=== PATIENT | female | born 1945 | race African-American/Black ===

== ENCOUNTER 2017-11-14 10:04 | Inpatient (IN) ==
[2017-11-14 11:01] LABS: Basophils % 0.5 % (0.0-0.8); Eosinophils # 0.1 10*3/uL (0.0-0.87); Eosinophils % 0.7 % (0.00-10.9); Hematocrit 40.3 VOL% (35.7-47.0); Hemoglobin 12.4 GM/DL (12.0-16.0); Immature Granulocytes % 0.1 %; Immature Granulocytes Absolute 0.01 #; Lymphocytes # 2.7 10*3/uL (1.4-4.0); Lymphocytes % 35.9 % (21.3-54.2); Mean Corpuscular HGB Conc 30.8 GM/DL (32-36); Mean Corpuscular Hemoglobin 24 PG (27-34); Mean Corpuscular Volume 78.4 FL (87-102); Mean Platelet Volume 10.2 FL (9.6-12.0); Neutrophils # 3.8 10*3/uL (1.4-7.4); Neutrophils % 49.8 % (38.7-73.9); Platelet Count 257 T/CUMM (130-400); Red Blood Count 5.14 MC/CUMM (3.8-5.5); Red Cell Distribution Width 20.5 % (9.3-17.3); White Blood Count 7.5 T/CUMM (4-12)
[2017-11-14 11:21] LABS: Alanine Aminotransferase 19 U/L (13-56); Albumin 3.2 G/DL (3.4-5.0); Alkaline Phosphatase 121 U/L (45-117); Aspartate Amino Transferase 27 U/L (0-37); Blood Urea Nitrogen 13 MG/DL (7-18); Calcium 8.6 MG/DL (8.5-10.1); Glucose 100 MG/DL (74-106); Osmolality,Calculated 278.4 MOS/KG (273-304); Potassium 2.6 MMOL/L (3.5-5.1); Sodium 140 MMOL/L (136-145); Total Protein 7.6 G/DL (6.4-8.3); Troponin I 0.027 NG/ML (0.00-0.045)
[2017-11-14 12:03] LABS: Barbiturates Screen,Urine Negative (Negative); Benzodiazepines Screen,Urine Negative (Negative); Cannabinoid Screen,Urine Negative (Negative); Opiate Screen,Urine Negative (Negative); Phencyclidine Screen,Urine Negative (Negative)
[2017-11-14 12:18] LABS: Apearance,Urine Slightly Hazy (Clear); Bacteria,Urine Occasional /HPF (Few); Bilirubin,Urine Negative (Negative); Blood, Urine Negative (Negative); Glucose,Urine (UA) Negative (Negative); Hyaline Casts,Urine 3 /LPF (0-3); Ketones,Urine Negative (Negative); Mucus,Urine Occasional /LPF (Occasional); Nitrite,Urine Negative (Negative); Protein,Urine Negative; RBC,Urine <1 /HPF (0-4); Squamous Epithelial Cell,Urine Occasional /HPF (0-10); Transitional Epi Cells,Urine Occasional /HPF (<1); Urine Color Yellow (Yellow); Urine Specific Gravity 1.004 (1.001-1.035); WBC,Urine 2 /HPF (0-6)
[2017-11-14] MEDS ORDERED: ACETAMINOPHEN 325 MG TABLET PO PRN (12:44)
[2017-11-14] MEDS ORDERED: POTASSIUM CHLORIDE 20 MEQ TABLET PO ONE (13:05)
[2017-11-14] MEDS: FUROSEMIDE 40 MG/4 ML VIAL IV SCH (16:45)
[2017-11-14] MEDS: CARVEDILOL 3.125 MG TABLET PO SCH (21:20)
[2017-11-14] MEDS: diphenhydrAMINE CAP 25 MG CAPSULE PO PRN (21:20)
[2017-11-15 02:47] LABS: Basophils % 0.4 % (0.0-0.8); Eosinophils # 0.1 10*3/uL (0.0-0.87); Hematocrit 35.9 VOL% (35.7-47.0); Hemoglobin 11.1 GM/DL (12.0-16.0); Immature Granulocytes % 0.3 %; Immature Granulocytes Absolute 0.02 #; Lymphocytes # 2.4 10*3/uL (1.4-4.0); Lymphocytes % 33.8 % (21.3-54.2); Mean Corpuscular HGB Conc 30.9 GM/DL (32-36); Mean Corpuscular Hemoglobin 24 PG (27-34); Mean Corpuscular Volume 77.2 FL (87-102); Mean Platelet Volume 10.7 FL (9.6-12.0); Monocytes # 0.9 10*3/uL (0.11-0.8); Monocytes % 12.6 % (1.7-12.7); NRBC # 0.02 10*3/uL; Neutrophils # 3.7 10*3/uL (1.4-7.4); Neutrophils % 51.9 % (38.7-73.9); Platelet Count 247 T/CUMM (130-400); Red Blood Count 4.65 MC/CUMM (3.8-5.5); Red Cell Distribution Width 20.3 % (9.3-17.3); White Blood Count 7.1 T/CUMM (4-12)
[2017-11-15 03:27] LABS: Osmolality,Calculated 284.3 MOS/KG (273-304)
[2017-11-15] MEDS ORDERED: POTASSIUM CHLORIDE 20 MEQ TABLET PO ONE (08:03)
[2017-11-15] MEDS ORDERED: APIXABAN 5 MG TABLET PO SCH (09:00)
[2017-11-15] MEDS: PANTOPRAZOLE 40 MG TABLET PO SCH (10:11)
[2017-11-15] MEDS: POTASSIUM CHLORIDE 20 MEQ TABLET PO SCH (10:12)
[2017-11-15] MEDS: FUROSEMIDE 40 MG/4 ML VIAL IV SCH ×2 (10:14→16:52)
[2017-11-15] MEDS ORDERED: ALBUTEROL 2.5 MG/3 ML NEB RESP TX PRN (11:38)
[2017-11-15] MEDS ORDERED: diphenhydrAMINE CAP 25 MG CAPSULE PO PRN (11:38)
[2017-11-15] MEDS ORDERED: LOSARTAN 25 MG TABLET PO SCH (12:00)
[2017-11-15] MEDS ORDERED: DILTIAZEM CD 240 MG CAPSULE PO SCH (12:00)
[2017-11-15] MEDS ORDERED: CARVEDILOL 25 MG TABLET PO SCH (19:00)
[2017-11-15] MEDS: diphenhydrAMINE CAP 25 MG CAPSULE PO PRN (21:20)
[2017-11-15] MEDS: CARVEDILOL 3.125 MG TABLET PO SCH (21:20)
[2017-11-15] MEDS: ATORVASTATIN 20 MG TABLET PO SCH (21:20)
[2017-11-15] MEDS: APIXABAN 5 MG TABLET PO SCH (21:20)
[2017-11-15] MEDS: ZALEPLON 5 MG CAPSULE PO PRN (21:20)
[2017-11-16 05:03] LABS: Basophils % 0.3 % (0.0-0.8); Eosinophils # 0.1 10*3/uL (0.0-0.87); Hemoglobin 11.3 GM/DL (12.0-16.0); Immature Granulocytes % 0.3 %; Immature Granulocytes Absolute 0.02 #; Lymphocytes # 2.5 10*3/uL (1.4-4.0); Mean Corpuscular HGB Conc 31.4 GM/DL (32-36); Mean Corpuscular Hemoglobin 24 PG (27-34); Mean Corpuscular Volume 75.8 FL (87-102); Mean Platelet Volume 10.5 FL (9.6-12.0); Monocytes % 14.6 % (1.7-12.7); Neutrophils # 2.9 10*3/uL (1.4-7.4); Neutrophils % 44.8 % (38.7-73.9); Platelet Count 257 T/CUMM (130-400); Red Blood Count 4.75 MC/CUMM (3.8-5.5); Red Cell Distribution Width 20.3 % (9.3-17.3); White Blood Count 6.6 T/CUMM (4-12)
[2017-11-16 05:17] LABS: Calcium 7.9 MG/DL (8.5-10.1); Osmolality,Calculated 281.1 MOS/KG (273-304); Potassium 3.1 MMOL/L (3.5-5.1)
[2017-11-16] MEDS ORDERED: DILTIAZEM 25 MG/5 ML VIAL IV ONE (09:38)
[2017-11-16] MEDS ORDERED: DILTIAZEM 50 MG/10 ML VIAL IV ONE (09:52)
[2017-11-16] MEDS ORDERED: POTASSIUM CHLORIDE 20 MEQ/15 ML UDCUP PO ONE (09:55)
[2017-11-16] MEDS: POTASSIUM CHLORIDE 20 MEQ TABLET PO SCH ×2 (09:56→22:03)
[2017-11-16] MEDS: PANTOPRAZOLE 40 MG TABLET PO SCH (09:58)
[2017-11-16] MEDS: APIXABAN 5 MG TABLET PO SCH ×2 (09:58→22:02)
[2017-11-16] MEDS: ASPIRIN EC 81 MG TABLET PO SCH (09:58)
[2017-11-16] MEDS ORDERED: METOPROLOL TARTRATE 25 MG TABLET PO SCH (10:00)
[2017-11-16] MEDS: FUROSEMIDE 40 MG/4 ML VIAL IV SCH ×2 (10:02→16:48)
[2017-11-16 10:36] LABS: Thyroid Stimulating Hormone 1.7 uIU/ml (0.358-3.74)
[2017-11-16] MEDS: BISOPROLOL 5 MG TABLET PO SCH ×3 (10:46→22:03)
[2017-11-16 11:05] LABS: Calcium 8.2 MG/DL (8.5-10.1); Osmolality,Calculated 279.4 MOS/KG (273-304); Potassium 2.9 MMOL/L (3.5-5.1)
[2017-11-16] MEDS ORDERED: FLUCONAZOLE INJ 400 MG in PREMIX 1 EACH IV SCH (12:30)
[2017-11-16] MEDS: ONDANSETRON 4 MG/2 ML VIAL IV PRN ×2 (18:13→22:03)
[2017-11-16] MEDS: diphenhydrAMINE CAP 25 MG CAPSULE PO PRN (22:02)
[2017-11-16] MEDS: ATORVASTATIN 20 MG TABLET PO SCH (22:02)
[2017-11-16] MEDS: ZALEPLON 5 MG CAPSULE PO PRN (22:02)
[2017-11-16] MEDS: MAGNESIUM OXIDE 400 MG TABLET PO SCH (22:02)
[2017-11-17] MEDS: ONDANSETRON 4 MG/2 ML VIAL IV PRN (02:03)
[2017-11-17] MEDS ORDERED: BISMUTH SUBSALICYLATE 30 ML/524 MG 240 ML/BOTTLE PO PRN (04:10)
[2017-11-17 04:44] LABS: Calcium 9.1 MG/DL (8.5-10.1); Osmolality,Calculated 268.4 MOS/KG (273-304)
[2017-11-17 04:46] LABS: Potassium 6.5 MMOL/L (3.5-5.1)
[2017-11-17] MEDS: BISOPROLOL 5 MG TABLET PO SCH ×4 (04:50→21:30)
[2017-11-17] MEDS ORDERED: NITROGLYCERIN SL 0.4 MG TABLET SL ONE (06:49)
[2017-11-17] MEDS ORDERED: NITROGLYCERIN SL 0.4 MG TABLET SL PRN (06:57)
[2017-11-17 07:18] LABS: Basophils % 0.2 % (0.0-0.8); Hematocrit 45.1 VOL% (35.7-47.0); Immature Granulocytes % 0.8 %; Lymphocytes # 1.5 10*3/uL (1.4-4.0); Lymphocytes % 11.2 % (21.3-54.2); Mean Corpuscular HGB Conc 28.8 GM/DL (32-36); Mean Corpuscular Hemoglobin 24 PG (27-34); Mean Corpuscular Volume 82.4 FL (87-102); Mean Platelet Volume 10.6 FL (9.6-12.0); Monocytes # 1.5 10*3/uL (0.11-0.8); Monocytes % 11.4 % (1.7-12.7); NRBC # 0.05 10*3/uL; Neutrophils # 9.9 10*3/uL (1.4-7.4); Neutrophils % 76.4 % (38.7-73.9); Platelet Count 266 T/CUMM (130-400); Red Blood Count 5.47 MC/CUMM (3.8-5.5); Red Cell Distribution Width 20.6 % (9.3-17.3)
[2017-11-17 07:45] LABS: Albumin 3.3 G/DL (3.4-5.0); Bilirubin,Total 3.8 MG/DL (0.2-1.0); Osmolality,Calculated 270.2 MOS/KG (273-304); Potassium 5.8 MMOL/L (3.5-5.1)
[2017-11-17] MEDS: POTASSIUM CHLORIDE 20 MEQ TABLET PO SCH (08:44)
[2017-11-17] MEDS: ASPIRIN EC 81 MG TABLET PO SCH (09:00)
[2017-11-17] MEDS: MAGNESIUM OXIDE 400 MG TABLET PO SCH ×2 (09:00→21:25)
[2017-11-17] MEDS: PANTOPRAZOLE 40 MG TABLET PO SCH (09:00)
[2017-11-17] MEDS: APIXABAN 5 MG TABLET PO SCH ×2 (09:00→21:25)
[2017-11-17] MEDS: FUROSEMIDE 40 MG/4 ML VIAL IV SCH (09:01)
[2017-11-17] MEDS ORDERED: SODIUM POLYSTYRENE SULFATE 15 GM/60 ML BOTTLE PO STA (13:02)
[2017-11-17] MEDS: ZALEPLON 5 MG CAPSULE PO PRN (21:25)
[2017-11-17] MEDS: diphenhydrAMINE CAP 25 MG CAPSULE PO PRN (21:25)
[2017-11-18 03:54] LABS: Basophils % 0.1 % (0.0-0.8); Hematocrit 39.2 VOL% (35.7-47.0); Hemoglobin 12.3 GM/DL (12.0-16.0); Immature Granulocytes % 1.1 %; Immature Granulocytes Absolute 0.16 #; Lymphocytes % 13.9 % (21.3-54.2); Mean Corpuscular HGB Conc 31.4 GM/DL (32-36); Mean Corpuscular Hemoglobin 24 PG (27-34); Mean Corpuscular Volume 76.3 FL (87-102); Mean Platelet Volume 11.2 FL (9.6-12.0); Monocytes # 1.7 10*3/uL (0.11-0.8); Monocytes % 11.6 % (1.7-12.7); NRBC # 0.12 10*3/uL; Neutrophils # 10.4 10*3/uL (1.4-7.4); Neutrophils % 73.3 % (38.7-73.9); Platelet Count 253 T/CUMM (130-400); Red Blood Count 5.14 MC/CUMM (3.8-5.5); White Blood Count 14.3 T/CUMM (4-12)
[2017-11-18 04:10] LABS: Calcium 8.5 MG/DL (8.5-10.1); Osmolality,Calculated 271.7 MOS/KG (273-304); Potassium 5.1 MMOL/L (3.5-5.1)
[2017-11-18] MEDS: BISOPROLOL 5 MG TABLET PO SCH ×5 (05:08→21:31)
[2017-11-18 06:42] LABS: Albumin 3.2 G/DL (3.4-5.0); Bilirubin,Total 4.1 MG/DL (0.2-1.0); Calcium 8.5 MG/DL (8.5-10.1); Osmolality,Calculated 272.7 MOS/KG (273-304); Total Protein 7.6 G/DL (6.4-8.3)
[2017-11-18] MEDS: PANTOPRAZOLE 40 MG TABLET PO SCH (08:45)
[2017-11-18] MEDS: APIXABAN 5 MG TABLET PO SCH ×2 (08:45→21:31)
[2017-11-18] MEDS: MAGNESIUM OXIDE 400 MG TABLET PO SCH ×2 (08:45→21:31)
[2017-11-18] MEDS: ASPIRIN EC 81 MG TABLET PO SCH (08:45)
[2017-11-18] MEDS ORDERED: FUROSEMIDE 40 MG/4 ML VIAL IV SCH (09:00)
[2017-11-18] MEDS ORDERED: FUROSEMIDE 20 MG TABLET PO ONE (18:00)
[2017-11-18] MEDS ORDERED: CAPTOPRIL 6.25 MG TABLET PO SCH (18:01)
[2017-11-19 04:38] LABS: Basophils % 0.2 % (0.0-0.8); Eosinophils % 0.2 % (0.00-10.9); Hematocrit 36.1 VOL% (35.7-47.0); Hemoglobin 11.5 GM/DL (12.0-16.0); Immature Granulocytes % 0.5 %; Immature Granulocytes Absolute 0.05 #; Lymphocytes # 2.4 10*3/uL (1.4-4.0); Lymphocytes % 22.3 % (21.3-54.2); Mean Corpuscular HGB Conc 31.9 GM/DL (32-36); Mean Corpuscular Hemoglobin 24 PG (27-34); Mean Corpuscular Volume 75.4 FL (87-102); Mean Platelet Volume 10.3 FL (9.6-12.0); Monocytes % 9.2 % (1.7-12.7); NRBC # 0.15 10*3/uL; Neutrophils # 7.4 10*3/uL (1.4-7.4); Neutrophils % 67.6 % (38.7-73.9); Platelet Count 237 T/CUMM (130-400); Red Blood Count 4.79 MC/CUMM (3.8-5.5); Red Cell Distribution Width 19.1 % (9.3-17.3); White Blood Count 10.9 T/CUMM (4-12)
[2017-11-19] MEDS: BISOPROLOL 5 MG TABLET PO SCH ×2 (05:20→09:15)
[2017-11-19 05:28] LABS: Albumin 2.7 G/DL (3.4-5.0); Bilirubin,Total 3.3 MG/DL (0.2-1.0); Calcium 8.4 MG/DL (8.5-10.1); Osmolality,Calculated 276.4 MOS/KG (273-304); Potassium 4.1 MMOL/L (3.5-5.1); Total Protein 6.5 G/DL (6.4-8.3)
[2017-11-19 07:58] VITALS: BP 101/65
[2017-11-19] MEDS ORDERED: FUROSEMIDE 20 MG TABLET PO SCH (09:00)
[2017-11-19] MEDS: MAGNESIUM OXIDE 400 MG TABLET PO SCH (09:15)
[2017-11-19] MEDS: APIXABAN 5 MG TABLET PO SCH (09:15)
[2017-11-19] MEDS: PANTOPRAZOLE 40 MG TABLET PO SCH (09:15)
[2017-11-19] MEDS: ASPIRIN EC 81 MG TABLET PO SCH (09:16)
== END 2017-11-19 11:25 | disposition home or self-care (01) | DRG 308 ==
LOC: N.ED 10:04 → SUATTDRO 12:44 → N.EDINP 12:44 → N.TELEN 13:50
PROVIDERS: ATTEND Hospitalist

== ENCOUNTER 2018-03-09 15:16 | Inpatient (IN) ==
[2018-03-09] MEDS ORDERED: methylPREDNISolone SOD SUC 125 MG/2 ML VIAL IV STA (19:13)
[2018-03-09] MEDS ORDERED: ALBUTEROL/IPRATROPIUM 3 ML NEB RESP TX STA (19:13)
[2018-03-09] MEDS ORDERED: methylPREDNISolone SOD SUC 125 MG/2 ML VIAL ONE (19:27)
[2018-03-09 19:52] LABS: INR 1.7; PT Patient Result 18.7 SECS; Partial Thromboplastin Time 27.5 SECS (0-40)
[2018-03-09 20:00] LABS: Basophils % 0.5 % (0.0-0.8); Hemoglobin 12.1 GM/DL (12.0-16.0); Immature Granulocytes % 0.2 %; Immature Granulocytes Absolute 0.02 #; Lymphocytes # 2.4 10*3/uL (1.4-4.0); Lymphocytes % 28.9 % (21.3-54.2); Mean Corpuscular HGB Conc 30.3 GM/DL (32-36); Mean Corpuscular Hemoglobin 23 PG (27-34); Mean Corpuscular Volume 74.6 FL (87-102); Mean Platelet Volume 11.3 FL (9.6-12.0); Monocytes # 0.8 10*3/uL (0.11-0.8); Monocytes % 9.6 % (1.7-12.7); NRBC # 0.02 10*3/uL; Neutrophils # 5.1 10*3/uL (1.4-7.4); Neutrophils % 60.8 % (38.7-73.9); Platelet Count 243 T/CUMM (130-400); Red Blood Count 5.36 MC/CUMM (3.8-5.5); Red Cell Distribution Width 21.2 % (9.3-17.3); White Blood Count 8.3 T/CUMM (4-12)
[2018-03-09 20:14] LABS: Bilirubin,Total 4.3 MG/DL (0.2-1.0); CKMB % 2.5 %; Calcium 8.5 MG/DL (8.5-10.1); Osmolality,Calculated 278.7 MOS/KG (273-304); Potassium 3.2 MMOL/L (3.5-5.1); Total Protein 7.5 G/DL (6.4-8.3); Troponin I 0.08 NG/ML (0.00-0.045)
[2018-03-09] MEDS ORDERED: ASPIRIN 325 MG TABLET PO STA (22:08)
[2018-03-09] MEDS ORDERED: FUROSEMIDE 20 MG/2 ML VIAL IV STA (22:08)
[2018-03-09] MEDS ORDERED: ENOXAPARIN 60 MG/0.6 ML SYRINGE SUBCUT STA (22:08)
[2018-03-09] MEDS ORDERED: MAGNESIUM SULF RIDER 4 GM in PREMIX 1 EACH IV PRN (23:10)
[2018-03-10 00:07] LABS: CKMB % 2.6 %
[2018-03-10 00:08] LABS: Troponin I 0.073 NG/ML (0.00-0.045)
[2018-03-10] MEDS: ALBUTEROL/IPRATROPIUM 3 ML NEB RESP TX SCH ×4 (02:05→18:30)
[2018-03-10 02:25] LABS: CKMB % 2.6 %
[2018-03-10 02:27] LABS: Troponin I 0.065 NG/ML (0.00-0.045)
[2018-03-10 05:07] LABS: CKMB % 2.6 %
[2018-03-10 05:09] LABS: Troponin I 0.068 NG/ML (0.00-0.045)
[2018-03-10] MEDS ORDERED: POTASSIUM CHLORIDE RIDER 10 MEQ in PREMIX 1 EACH IV PRN (06:28)
[2018-03-10] MEDS: PANTOPRAZOLE 40 MG TABLET PO SCH (08:54)
[2018-03-10] MEDS ORDERED: FUROSEMIDE 40 MG/4 ML VIAL IV SCH (10:44)
[2018-03-10] MEDS ORDERED: ALBUTEROL 2.5 MG/3 ML NEB RESP TX PRN (10:45)
[2018-03-10] MEDS ORDERED: hydrOXYzine HCL 25 MG TABLET PO PRN (10:45)
[2018-03-10] MEDS ORDERED: METOPROLOL TARTRATE 5 MG/5 ML VIAL IV ONE (10:47)
[2018-03-10] MEDS ORDERED: METOPROLOL TARTRATE 5 MG/5 ML VIAL IV STA (10:59)
[2018-03-10] MEDS ORDERED: DILTIAZEM CD 240 MG CAPSULE PO SCH (11:00)
[2018-03-10] MEDS ORDERED: SPIRONOLACTONE 25 MG TABLET PO SCH (11:00)
[2018-03-10] MEDS: FUROSEMIDE 40 MG/4 ML VIAL IV SCH (11:21)
[2018-03-10] MEDS: MAGNESIUM OXIDE 400 MG TABLET PO SCH ×2 (11:21→23:12)
[2018-03-10] MEDS: POTASSIUM CHLORIDE 20 MEQ TABLET PO PRN ×4 (11:21→23:13)
[2018-03-10] MEDS: dilTIAZem Drip 125 MG/125 ML PREMIX IV SCH (11:21)
[2018-03-10] MEDS: ASPIRIN EC 81 MG TABLET PO SCH (11:30)
[2018-03-10] MEDS: APIXABAN 5 MG TABLET PO SCH ×2 (11:30→23:12)
[2018-03-10 11:55] LABS: Calcium 8.4 MG/DL (8.5-10.1); Osmolality,Calculated 281.7 MOS/KG (273-304); Potassium 3.1 MMOL/L (3.5-5.1)
[2018-03-10] MEDS ORDERED: CARVEDILOL 3.125 MG TABLET PO SCH (17:00)
[2018-03-10] MEDS ORDERED: ENOXAPARIN 40 MG/0.4 ML SYRINGE SUBCUT SCH (21:00)
[2018-03-10] MEDS ORDERED: ATORVASTATIN 20 MG TABLET PO SCH (21:00)
[2018-03-10] MEDS ORDERED: BISOPROLOL 5 MG TABLET PO SCH (21:00)
[2018-03-10] MEDS ORDERED: ACETAMINOPHEN 325 MG TABLET PO PRN (22:04)
[2018-03-10] MEDS: BISOPROLOL 5 MG TABLET PO SCH (23:12)
[2018-03-11] MEDS: POTASSIUM CHLORIDE 20 MEQ TABLET PO PRN (03:23)
[2018-03-11 04:49] LABS: Calcium 8.6 MG/DL (8.5-10.1); Hematocrit 38.5 VOL% (35.7-47.0); Hemoglobin 11.5 GM/DL (12.0-16.0); Immature Granulocytes % 0.4 %; Immature Granulocytes Absolute 0.04 #; Lymphocytes # 1.6 10*3/uL (1.4-4.0); Lymphocytes % 15.8 % (21.3-54.2); Mean Corpuscular HGB Conc 29.9 GM/DL (32-36); Mean Corpuscular Hemoglobin 23 PG (27-34); Mean Corpuscular Volume 75.3 FL (87-102); Monocytes # 0.9 10*3/uL (0.11-0.8); Monocytes % 8.6 % (1.7-12.7); NRBC # 0.11 10*3/uL; Neutrophils # 7.8 10*3/uL (1.4-7.4); Neutrophils % 75.2 % (38.7-73.9); Osmolality,Calculated 276.1 MOS/KG (273-304); Platelet Count 230 T/CUMM (130-400); Potassium 4.5 MMOL/L (3.5-5.1); Red Blood Count 5.11 MC/CUMM (3.8-5.5); Red Cell Distribution Width 21.1 % (9.3-17.3); White Blood Count 10.3 T/CUMM (4-12)
[2018-03-11 05:10] LABS: Hypochromasia 1+; Platelet Estimate Adequate
[2018-03-11] MEDS: MAGNESIUM SULF RIDER 2 GM in PREMIX 1 EACH IV PRN (07:16)
[2018-03-11] MEDS: ALBUTEROL/IPRATROPIUM 3 ML NEB RESP TX SCH ×4 (07:20→19:53)
[2018-03-11] MEDS: CETIRIZINE 10 MG TABLET PO SCH (09:39)
[2018-03-11] MEDS: ASPIRIN EC 81 MG TABLET PO SCH (09:39)
[2018-03-11] MEDS: MAGNESIUM OXIDE 400 MG TABLET PO SCH ×2 (09:40→20:31)
[2018-03-11] MEDS: PANTOPRAZOLE 40 MG TABLET PO SCH (09:40)
[2018-03-11] MEDS: BISOPROLOL 5 MG TABLET PO SCH (09:40)
[2018-03-11] MEDS: APIXABAN 5 MG TABLET PO SCH ×2 (09:41→21:38)
[2018-03-11] MEDS: POTASSIUM CHLORIDE 20 MEQ TABLET PO SCH (10:18)
[2018-03-11] MEDS ORDERED: SODIUM CHLORIDE 0.9% 500 ML IV ONE (11:22)
[2018-03-11] MEDS ORDERED: clonazePAM 0.5 MG TABLET PO ONE (14:41)
[2018-03-11] MEDS: FUROSEMIDE 40 MG/4 ML VIAL IV SCH (16:23)
[2018-03-11 17:49] LABS: ABG Base Excess -21.4 MMOL/L (-2.5-2.5); ABG HCO3 9.4 MMOL/L (20-26); ABG Oxygen Saturation 97.7 % (95-100); ABG PH 7.215 (7.35-7.45); Allen Test Positive
[2018-03-11] MEDS ORDERED: LEVOFLOXACIN INJ 500 MG in PREMIX 1 EACH IV ONE (18:00)
[2018-03-11 18:02] LABS: ABG PCO2 13.8 MM HG (35-48)
[2018-03-11 18:20] LABS: Apearance,Urine Slightly Hazy (Clear); Bilirubin,Urine Negative (Negative); Blood, Urine Large mg/dL (Negative); Glucose,Urine (UA) Negative (Negative); Hyaline Casts,Urine 16 /LPF (0-3); Ketones,Urine Negative (Negative); Mucus,Urine Occasional /LPF (Occasional); Nitrite,Urine Negative (Negative); Protein,Urine 100 MG/DL; RBC,Urine 7 /HPF (0-4); Squamous Epithelial Cell,Urine Occasional /HPF (0-10); WBC,Urine 8 /HPF (0-6)
[2018-03-11 18:21] LABS: Urine Color Dark yellow (Yellow)
[2018-03-11] MEDS: FOLIC ACID 1 MG TABLET PO SCH ×2 (18:40→20:31)
[2018-03-11] MEDS: THIAMINE 100 MG TABLET PO SCH ×2 (18:40→20:32)
[2018-03-11] MEDS ORDERED: SODIUM CHLORIDE 0.9% 1,000 ML IV ONE (18:42)
[2018-03-11] MEDS ORDERED: SODIUM BICARBONATE 50 MEQ/50 ML SYRINGE IV ONE ×2 (19:39→19:40)
[2018-03-11] MEDS ORDERED: SODIUM BICARB INJ 100 MEQ in SODIUM CHLORIDE 0.45% 1,000 ML IV SCH (20:00)
[2018-03-11 20:31] LABS: Albumin 3.1 G/DL (3.4-5.0); Bilirubin,Total 4.9 MG/DL (0.2-1.0); Calcium 9.3 MG/DL (8.5-10.1); Osmolality,Calculated 268.5 MOS/KG (273-304); Total Protein 7.8 G/DL (6.4-8.3)
[2018-03-11] MEDS: SERTRALINE 25 MG TABLET PO SCH (20:32)
[2018-03-11] MEDS: dilTIAZem Drip 125 MG/125 ML PREMIX IV SCH (20:32)
[2018-03-11 20:57] LABS: Potassium 6.8 MMOL/L (3.5-5.1)
[2018-03-11] MEDS ORDERED: clonazePAM 0.5 MG TABLET PO PRN (21:00)
[2018-03-11 21:45] LABS: Calcium 9.2 MG/DL (8.5-10.1); Osmolality,Calculated 267.5 MOS/KG (273-304)
[2018-03-11 21:47] LABS: Potassium 6.6 MMOL/L (3.5-5.1)
[2018-03-11 21:53] LABS: Apearance,Urine CLOUDY (Clear); Bacteria,Urine Few /HPF (Few); Bilirubin,Urine Negative (Negative); Blood, Urine Large mg/dL (Negative); Glucose,Urine (UA) Negative (Negative); Ketones,Urine Negative (Negative); Mucus,Urine Occasional /LPF (Occasional); Nitrite,Urine Negative (Negative); Protein,Urine 100 MG/DL; RBC,Urine 238 /HPF (0-4); Squamous Epithelial Cell,Urine Occasional /HPF (0-10); Urine Color Yellow (Yellow)
[2018-03-11] MEDS ORDERED: DEXTROSE 50% 25 GM/50 ML SYRINGE IV ONE (22:05)
[2018-03-11] MEDS ORDERED: DEXTROSE 50% 25 GM/50 ML SYRINGE IV PRN (22:12)
[2018-03-11] MEDS ORDERED: SODIUM CHLORIDE 0.9% 250 ML IV ONE (22:20)
[2018-03-11] MEDS ORDERED: DEXTROSE 50% 25 GM, SODIUM BICARB INJ 50 MEQ, INSULIN REGULAR 10 UNIT in SODIUM CHLORID... IV SCH (22:30)
[2018-03-11] MEDS: SODIUM BICARB INJ 100 MEQ in DEXTROSE 5% NACL 0.45% 1,000 ML IV SCH (22:46)
[2018-03-11] MEDS: ONDANSETRON 4 MG/2 ML VIAL IV PRN (23:14)
[2018-03-12] MEDS ORDERED: SODIUM CHLORIDE 0.9% 500 ML IV ONE ×2 (00:55→04:12)
[2018-03-12] MEDS: ALBUTEROL/IPRATROPIUM 3 ML NEB RESP TX SCH ×4 (01:36→19:10)
[2018-03-12] MEDS: PIPERACILLIN/TAZOBACTAM 3,375 MG in SODIUM CHLORIDE 0.9% 100 ML IV SCH ×2 (01:42→13:09)
[2018-03-12 03:06] LABS: Basophils % 0.1 % (0.0-0.8); Hemoglobin 11.9 GM/DL (12.0-16.0); Immature Granulocytes % 0.9 %; Immature Granulocytes Absolute 0.22 #; Lymphocytes # 0.9 10*3/uL (1.4-4.0); Lymphocytes % 3.6 % (21.3-54.2); Mean Corpuscular HGB Conc 28.3 GM/DL (32-36); Mean Corpuscular Hemoglobin 23 PG (27-34); Mean Platelet Volume 11.6 FL (9.6-12.0); Monocytes # 2.4 10*3/uL (0.11-0.8); Monocytes % 9.2 % (1.7-12.7); NRBC # 0.38 10*3/uL; Neutrophils # 22.3 10*3/uL (1.4-7.4); Neutrophils % 86.2 % (38.7-73.9); Platelet Count 149 T/CUMM (130-400); Red Blood Count 5.25 MC/CUMM (3.8-5.5); Red Cell Distribution Width 21.8 % (9.3-17.3); White Blood Count 25.9 T/CUMM (4-12)
[2018-03-12 03:30] LABS: Calcium 8.7 MG/DL (8.5-10.1); Potassium 5.2 MMOL/L (3.5-5.1)
[2018-03-12 03:36] LABS: Lymphocytes 1 % (20-55); Nucleated Red Blood Cells 6 (0-5); Segmented Neutrophils 94 % (50-85); Total Cells Counted 100
[2018-03-12 03:37] LABS: Platelet Estimate Adequate; Polychromasia Few
[2018-03-12] MEDS ORDERED: SODIUM BICARBONATE 50 MEQ/50 ML SYRINGE IV ONE (04:12)
[2018-03-12 07:31] LABS: Alanine Aminotransferase 156 U/L (13-56); Albumin 2.9 G/DL (3.4-5.0); Alkaline Phosphatase 132 U/L (45-117); Aspartate Amino Transferase 342 U/L (0-37); Blood Urea Nitrogen 39 MG/DL (7-18); Calcium 8.7 MG/DL (8.5-10.1); Glucose 124 MG/DL (74-106); Osmolality,Calculated 282.8 MOS/KG (273-304); Potassium 5.3 MMOL/L (3.5-5.1); Sodium 137 MMOL/L (136-145); Total Protein 7.1 G/DL (6.4-8.3)
[2018-03-12 07:39] LABS: Basophils # 0.1 10*3/uL (0.0-0.2); Basophils % 0.2 % (0.0-0.8); Eosinophils # 0.1 10*3/uL (0.0-0.87); Eosinophils % 0.4 % (0.00-10.9); Hematocrit 43.1 VOL% (35.7-47.0); Immature Granulocytes % 1.5 %; Immature Granulocytes Absolute 0.52 #; Lymphocytes # 1.2 10*3/uL (1.4-4.0); Lymphocytes % 3.3 % (21.3-54.2); Mean Corpuscular HGB Conc 28.5 GM/DL (32-36); Mean Corpuscular Hemoglobin 23 PG (27-34); Mean Corpuscular Volume 79.5 FL (87-102); Monocytes # 1.4 10*3/uL (0.11-0.8); Monocytes % 4.1 % (1.7-12.7); NRBC # 0.55 10*3/uL; Neutrophils # 31.5 10*3/uL (1.4-7.4); Neutrophils % 90.5 % (38.7-73.9); Platelet Count 172 T/CUMM (130-400); Red Blood Count 5.42 MC/CUMM (3.8-5.5); Red Cell Distribution Width 22.1 % (9.3-17.3); White Blood Count 34.8 T/CUMM (4-12)
[2018-03-12 07:40] LABS: Hemoglobin 12.3 GM/DL (12.0-16.0)
[2018-03-12 07:43] LABS: Burr Cells Slight; Hypochromasia 1+; Lymphocytes 1 % (20-55); Ovalocytes Slight; Platelet Estimate Adequate; Segmented Neutrophils 97 % (50-85); Total Cells Counted 100
[2018-03-12 07:48] LABS: Albumin 2.9 G/DL (3.4-5.0); Bilirubin,Direct 3.38 MG/DL (0.0-0.20); Bilirubin,Indirect 2.2 MG/DL (0.0-1.0); Bilirubin,Total 5.6 MG/DL (0.2-1.0); Total Protein 7.1 G/DL (6.4-8.3)
[2018-03-12] MEDS: ASPIRIN EC 81 MG TABLET PO SCH (08:52)
[2018-03-12] MEDS: THIAMINE 100 MG TABLET PO SCH ×2 (08:52→20:13)
[2018-03-12] MEDS: CETIRIZINE 10 MG TABLET PO SCH (08:53)
[2018-03-12] MEDS: PANTOPRAZOLE 40 MG TABLET PO SCH (08:53)
[2018-03-12] MEDS: FOLIC ACID 1 MG TABLET PO SCH ×2 (08:53→20:13)
[2018-03-12 09:03] LABS: ABG Base Excess -12.2 MMOL/L (-2.5-2.5); ABG Oxygen Saturation 96.6 % (95-100); ABG PH 7.411 (7.35-7.45); ABG PO2 92.7 MM HG (80-95); ABG TCO2 9.5 MMOL/L (23-27); Allen Test Positive
[2018-03-12 09:06] LABS: ABG PCO2 16.9 MM HG (35-48)
[2018-03-12] MEDS: POTASSIUM CHLORIDE 20 MEQ TABLET PO SCH (12:47)
[2018-03-12] MEDS: metroNIDAZOLE INJ 500 MG in PREMIX 1 EACH IV SCH ×2 (13:06→18:44)
[2018-03-12 13:24] LABS: Hepatitis A Ab IgM Quant 0.13 Index; Hepatitis A Ab IgM Result Negative (Negative); Hepatitis B Core IgM Quant 0.11 Index; Hepatitis B Core IgM Result Negative (Negative); Hepatitis B Surface Ag Quant < 0.10 Index; Hepatitis B Surface Ag Result Negative (Negative); Hepatitis C Virus Ab Quant 0.07 Index; Hepatitis C Virus Ab Result Negative (Negative)
[2018-03-12] MEDS: SODIUM BICARB INJ 100 MEQ in DEXTROSE 5% NACL 0.45% 1,000 ML IV SCH (17:57)
[2018-03-12] MEDS ORDERED: LEVOFLOXACIN INJ 250 MG in PREMIX 1 EACH IV SCH (18:00)
[2018-03-12] MEDS: SERTRALINE 25 MG TABLET PO SCH (20:13)
[2018-03-13] MEDS: ALBUTEROL/IPRATROPIUM 3 ML NEB RESP TX SCH ×4 (00:42→19:37)
[2018-03-13] MEDS: SODIUM BICARB INJ 100 MEQ in DEXTROSE 5% NACL 0.45% 1,000 ML IV SCH (01:54)
[2018-03-13] MEDS: PIPERACILLIN/TAZOBACTAM 3,375 MG in SODIUM CHLORIDE 0.9% 100 ML IV SCH ×2 (01:54→13:18)
[2018-03-13] MEDS: metroNIDAZOLE INJ 500 MG in PREMIX 1 EACH IV SCH ×3 (01:54→17:40)
[2018-03-13 05:05] LABS: Basophils % 0.1 % (0.0-0.8); Hematocrit 35.4 VOL% (35.7-47.0); Hemoglobin 10.8 GM/DL (12.0-16.0); Immature Granulocytes % 0.6 %; Immature Granulocytes Absolute 0.14 #; Lymphocytes % 4.8 % (21.3-54.2); Mean Corpuscular HGB Conc 30.5 GM/DL (32-36); Mean Corpuscular Hemoglobin 23 PG (27-34); Mean Corpuscular Volume 73.9 FL (87-102); Monocytes # 1.8 10*3/uL (0.11-0.8); Monocytes % 8.2 % (1.7-12.7); NRBC # 0.73 10*3/uL; Neutrophils # 18.6 10*3/uL (1.4-7.4); Neutrophils % 86.3 % (38.7-73.9); Platelet Count 198 T/CUMM (130-400); Red Blood Count 4.79 MC/CUMM (3.8-5.5); Red Cell Distribution Width 21.2 % (9.3-17.3); White Blood Count 21.6 T/CUMM (4-12)
[2018-03-13 05:44] LABS: Lymphocytes 7 % (20-55); Nucleated Red Blood Cells 5 (0-5); Segmented Neutrophils 89 % (50-85); Total Cells Counted 100
[2018-03-13 05:45] LABS: Hypochromasia 2+; Microcytosis 1+; Ovalocytes Slight; Target Cells Slight
[2018-03-13 05:46] LABS: Platelet Estimate Adequate
[2018-03-13 05:48] LABS: Albumin 2.3 G/DL (3.4-5.0); Bilirubin,Total 4.4 MG/DL (0.2-1.0); Calcium 8.3 MG/DL (8.5-10.1); Osmolality,Calculated 288.8 MOS/KG (273-304); Potassium 4.4 MMOL/L (3.5-5.1); Total Protein 5.9 G/DL (6.4-8.3)
[2018-03-13] MEDS: DEXTROSE 5% NACL 0.45% 1,000 ML IV SCH (07:35)
[2018-03-13] MEDS: ASPIRIN EC 81 MG TABLET PO SCH (09:14)
[2018-03-13] MEDS: CETIRIZINE 10 MG TABLET PO SCH (09:14)
[2018-03-13] MEDS: THIAMINE 100 MG TABLET PO SCH ×2 (09:14→20:17)
[2018-03-13] MEDS: FOLIC ACID 1 MG TABLET PO SCH ×2 (09:14→20:17)
[2018-03-13] MEDS: PANTOPRAZOLE 40 MG TABLET PO SCH (09:14)
[2018-03-13] MEDS: POTASSIUM CHLORIDE 20 MEQ TABLET PO SCH (09:14)
[2018-03-13 10:21] LABS: INR 3.3
[2018-03-13 10:52] LABS: PT Patient Result 35.5 SECS
[2018-03-13] MEDS: BISOPROLOL 5 MG TABLET PO SCH (16:54)
[2018-03-13] MEDS: dilTIAZem Drip 125 MG/125 ML PREMIX IV SCH (17:54)
[2018-03-13] MEDS: SERTRALINE 25 MG TABLET PO SCH (20:18)
[2018-03-14] MEDS: ALBUTEROL/IPRATROPIUM 3 ML NEB RESP TX SCH ×4 (00:39→19:05)
[2018-03-14] MEDS: metroNIDAZOLE INJ 500 MG in PREMIX 1 EACH IV SCH ×3 (01:56→17:37)
[2018-03-14] MEDS: PIPERACILLIN/TAZOBACTAM 3,375 MG in SODIUM CHLORIDE 0.9% 100 ML IV SCH ×2 (02:56→12:28)
[2018-03-14] MEDS: DEXTROSE 5% NACL 0.45% 1,000 ML IV SCH ×2 (05:37→17:55)
[2018-03-14 05:49] LABS: Basophils % 0.1 % (0.0-0.8); Eosinophils % 0.1 % (0.00-10.9); Hematocrit 37.4 VOL% (35.7-47.0); Hemoglobin 11.5 GM/DL (12.0-16.0); Immature Granulocytes % 0.6 %; Immature Granulocytes Absolute 0.09 #; Lymphocytes # 2.1 10*3/uL (1.4-4.0); Lymphocytes % 13.9 % (21.3-54.2); Mean Corpuscular HGB Conc 30.7 GM/DL (32-36); Mean Corpuscular Hemoglobin 22 PG (27-34); Mean Corpuscular Volume 72.6 FL (87-102); Monocytes # 1.2 10*3/uL (0.11-0.8); Monocytes % 7.6 % (1.7-12.7); NRBC # 0.67 10*3/uL; Neutrophils # 11.9 10*3/uL (1.4-7.4); Neutrophils % 77.7 % (38.7-73.9); Platelet Count 209 T/CUMM (130-400); Red Blood Count 5.15 MC/CUMM (3.8-5.5); White Blood Count 15.3 T/CUMM (4-12)
[2018-03-14 05:56] LABS: INR 2.2
[2018-03-14 06:10] LABS: PT Patient Result 23.4 SECS
[2018-03-14 06:13] LABS: Albumin 2.3 G/DL (3.4-5.0); Calcium 8.2 MG/DL (8.5-10.1); Osmolality,Calculated 279.1 MOS/KG (273-304); Potassium 5.1 MMOL/L (3.5-5.1); Total Protein 5.9 G/DL (6.4-8.3)
[2018-03-14 06:20] LABS: Platelet Estimate Normal
[2018-03-14 06:21] LABS: Anisocytosis 2+; Macrocytosis 1+; Poikilocytosis 1+; Target Cells 1+
[2018-03-14] MEDS: THIAMINE 100 MG TABLET PO SCH ×2 (08:48→21:00)
[2018-03-14] MEDS: FOLIC ACID 1 MG TABLET PO SCH ×2 (08:48→21:00)
[2018-03-14] MEDS: BISOPROLOL 5 MG TABLET PO SCH (08:48)
[2018-03-14] MEDS: POTASSIUM CHLORIDE 20 MEQ TABLET PO SCH (08:48)
[2018-03-14] MEDS: PANTOPRAZOLE 40 MG TABLET PO SCH (08:48)
[2018-03-14] MEDS: ASPIRIN EC 81 MG TABLET PO SCH (08:48)
[2018-03-14] MEDS: CETIRIZINE 10 MG TABLET PO SCH (08:48)
[2018-03-14] MEDS ORDERED: PHENOL 1.4% THROAT SPRAY 177 ML BOTTLE PO PRN (12:56)
[2018-03-14] MEDS: SERTRALINE 25 MG TABLET PO SCH (21:00)
[2018-03-15] MEDS: PIPERACILLIN/TAZOBACTAM 3,375 MG in SODIUM CHLORIDE 0.9% 100 ML IV SCH ×2 (01:51→13:12)
[2018-03-15] MEDS: DEXTROSE 5% NACL 0.45% 1,000 ML IV SCH (02:20)
[2018-03-15] MEDS: ALBUTEROL/IPRATROPIUM 3 ML NEB RESP TX SCH ×4 (02:43→20:59)
[2018-03-15] MEDS: metroNIDAZOLE INJ 500 MG in PREMIX 1 EACH IV SCH ×3 (03:09→19:38)
[2018-03-15 05:28] LABS: Basophils % 0.1 % (0.0-0.8); Eosinophils % 0.2 % (0.00-10.9); Hemoglobin 12.3 GM/DL (12.0-16.0); Immature Granulocytes % 0.7 %; Immature Granulocytes Absolute 0.08 #; Lymphocytes # 2.2 10*3/uL (1.4-4.0); Lymphocytes % 18.4 % (21.3-54.2); Mean Corpuscular HGB Conc 30.8 GM/DL (32-36); Mean Corpuscular Hemoglobin 23 PG (27-34); Mean Corpuscular Volume 73.5 FL (87-102); Monocytes # 1.1 10*3/uL (0.11-0.8); Monocytes % 9.4 % (1.7-12.7); NRBC # 0.72 10*3/uL; Neutrophils # 8.3 10*3/uL (1.4-7.4); Neutrophils % 71.2 % (38.7-73.9); Platelet Count 188 T/CUMM (130-400); Red Blood Count 5.44 MC/CUMM (3.8-5.5); Red Cell Distribution Width 21.6 % (9.3-17.3); White Blood Count 11.7 T/CUMM (4-12)
[2018-03-15 05:54] LABS: Albumin 2.2 G/DL (3.4-5.0); Bilirubin,Total 5.3 MG/DL (0.2-1.0); Calcium 8.2 MG/DL (8.5-10.1); Osmolality,Calculated 276.2 MOS/KG (273-304); Potassium 5.2 MMOL/L (3.5-5.1); Total Protein 6.3 G/DL (6.4-8.3)
[2018-03-15] MEDS ORDERED: dilTIAZem Drip 125 MG/125 ML PREMIX IV ONE (06:21)
[2018-03-15] MEDS ORDERED: dilTIAZem Drip 125 MG/125 ML PREMIX IV SCH (06:30)
[2018-03-15] MEDS ORDERED: AMIODARONE INJ 150 MG in DEXTROSE 5% 100 ML IV ONE (06:54)
[2018-03-15] MEDS ORDERED: AMIODARONE 450 MG/9 ML VIAL IV ONE (07:01)
[2018-03-15] MEDS: THIAMINE 100 MG TABLET PO SCH ×2 (09:09→21:20)
[2018-03-15] MEDS: BISOPROLOL 5 MG TABLET PO SCH (09:09)
[2018-03-15] MEDS: POTASSIUM CHLORIDE 20 MEQ TABLET PO SCH (09:10)
[2018-03-15] MEDS: ASPIRIN EC 81 MG TABLET PO SCH (09:10)
[2018-03-15] MEDS: PANTOPRAZOLE 40 MG TABLET PO SCH (09:10)
[2018-03-15] MEDS: FOLIC ACID 1 MG TABLET PO SCH ×2 (09:10→21:20)
[2018-03-15] MEDS: CETIRIZINE 10 MG TABLET PO SCH (09:10)
[2018-03-15] MEDS ORDERED: ENOXAPARIN 30 MG/0.3 ML SYRINGE SUBCUT ONE (10:44)
[2018-03-15] MEDS ORDERED: AMIODARONE INJ 450 MG in DEXTROSE 5% 241 ML IV SCH (11:00)
[2018-03-15] MEDS: FUROSEMIDE 40 MG/4 ML VIAL IV SCH ×2 (11:08→16:21)
[2018-03-15 14:35] LABS: Apearance,Urine CLEAR (Clear); Bilirubin,Urine Negative (Negative); Blood, Urine Small mg/dL (Negative); Glucose,Urine (UA) Negative (Negative); Ketones,Urine Negative (Negative); Nitrite,Urine Negative (Negative); Protein,Urine 30 MG/DL; RBC,Urine 21 /HPF (0-4); Urine Color Amber (Yellow); Urine Specific Gravity 1.024 (1.001-1.035); WBC,Urine 5 /HPF (0-6)
[2018-03-15] MEDS ORDERED: SODIUM CHLORIDE 0.9% 500 ML IV ONE (16:06)
[2018-03-15] MEDS ORDERED: DEXTROSE 50% 25 GM/50 ML SYRINGE IV ONE (17:11)
[2018-03-15] MEDS ORDERED: CALCIUM GLUCONATE 1,000 MG in SODIUM CHLORIDE 0.9% 100 ML IV ONE (17:40)
[2018-03-15] MEDS ORDERED: SODIUM BICARBONATE 50 MEQ/50 ML SYRINGE IV ONE ×2 (17:40→17:43)
[2018-03-15] MEDS: AMIODARONE INJ 450 MG in DEXTROSE 5% 241 ML IV SCH (17:58)
[2018-03-15] MEDS: SODIUM BICARB INJ 100 MEQ in DEXTROSE 5% NACL 0.45% 1,000 ML IV SCH (18:45)
[2018-03-15] MEDS ORDERED: SODIUM CHLORIDE 0.9% 1,000 ML IV ONE (19:13)
[2018-03-15] MEDS: DEXTROSE 50% 25 GM/50 ML SYRINGE IV PRN (20:04)
[2018-03-15] MEDS: SERTRALINE 25 MG TABLET PO SCH (21:19)
[2018-03-15] MEDS: ZALEPLON 5 MG CAPSULE PO PRN (21:20)
[2018-03-16] MEDS: ALBUTEROL/IPRATROPIUM 3 ML NEB RESP TX SCH ×4 (00:32→19:18)
[2018-03-16] MEDS: PIPERACILLIN/TAZOBACTAM 3,375 MG in SODIUM CHLORIDE 0.9% 100 ML IV SCH ×2 (02:52→13:02)
[2018-03-16] MEDS: metroNIDAZOLE INJ 500 MG in PREMIX 1 EACH IV SCH ×3 (02:53→18:05)
[2018-03-16 05:02] LABS: Albumin 2.5 G/DL (3.4-5.0); Bilirubin,Total 9.7 MG/DL (0.2-1.0); Calcium 8.4 MG/DL (8.5-10.1); Osmolality,Calculated 280.1 MOS/KG (273-304); Potassium 5.2 MMOL/L (3.5-5.1); Total Protein 6.8 G/DL (6.4-8.3)
[2018-03-16 05:04] LABS: Basophils % 0.1 % (0.0-0.8); Hematocrit 40.5 VOL% (35.7-47.0); Hemoglobin 11.4 GM/DL (12.0-16.0); Immature Granulocytes % 1.8 %; Immature Granulocytes Absolute 0.35 #; Mean Corpuscular HGB Conc 28.1 GM/DL (32-36); Mean Corpuscular Hemoglobin 22 PG (27-34); Mean Corpuscular Volume 79.6 FL (87-102); Monocytes # 2.4 10*3/uL (0.11-0.8); Monocytes % 12.7 % (1.7-12.7); NRBC # 1.27 10*3/uL; Neutrophils # 15.3 10*3/uL (1.4-7.4); Neutrophils % 80.4 % (38.7-73.9); Platelet Count 176 T/CUMM (130-400); Red Blood Count 5.09 MC/CUMM (3.8-5.5); Red Cell Distribution Width 21.9 % (9.3-17.3); White Blood Count 19.1 T/CUMM (4-12)
[2018-03-16 05:09] LABS: Polychromasia Slight
[2018-03-16 05:10] LABS: Acanthocytes Few; Burr Cells Few; Hypochromasia 1+; Microcytosis 1+; Target Cells Slight
[2018-03-16 05:11] LABS: Platelet Estimate Adequate
[2018-03-16] MEDS: SODIUM BICARB INJ 100 MEQ in DEXTROSE 5% NACL 0.45% 1,000 ML IV SCH ×2 (05:18→15:53)
[2018-03-16] MEDS: THIAMINE 100 MG TABLET PO SCH ×3 (09:23→20:18)
[2018-03-16] MEDS: FOLIC ACID 1 MG TABLET PO SCH ×3 (09:23→20:18)
[2018-03-16] MEDS: BISOPROLOL 5 MG TABLET PO SCH (09:23)
[2018-03-16] MEDS: PANTOPRAZOLE 40 MG TABLET PO SCH ×2 (09:23→13:51)
[2018-03-16] MEDS: ASPIRIN EC 81 MG TABLET PO SCH (09:23)
[2018-03-16] MEDS ORDERED: SODIUM BICARBONATE 50 MEQ/50 ML SYRINGE IV ONE ×2 (09:52→11:58)
[2018-03-16] MEDS: FUROSEMIDE 40 MG/4 ML VIAL IV SCH (09:55)
[2018-03-16 11:00] LABS: ABG Base Excess -16.1 MMOL/L (-2.5-2.5); ABG HCO3 12.4 MMOL/L (20-26); ABG Oxygen Saturation 96.4 % (95-100); ABG PH 7.302 (7.35-7.45); Allen Test Positive
[2018-03-16] MEDS: AMIODARONE INJ 450 MG in DEXTROSE 5% 241 ML IV SCH (12:37)
[2018-03-16] MEDS: LACTULOSE 20 GM/30 ML UDCUP PO SCH ×2 (12:50→18:05)
[2018-03-16 14:11] LABS: Smooth Muscle Antibody Negative (Negative)
[2018-03-16 14:15] LABS: Apearance,Urine CLOUDY (Clear); Bilirubin,Urine Negative (Negative); Blood, Urine Moderate mg/dL (Negative); Glucose,Urine (UA) 50 mg/dL (Negative); Ketones,Urine Negative (Negative); Nitrite,Urine Negative (Negative); Protein,Urine 100 MG/DL; RBC,Urine 21091 /HPF (0-4); Urine Color Red (Yellow); Urine Specific Gravity 1.019 (1.001-1.035); Urine Urobilinogen < 2.0 EU/DL (0.2-1.0); WBC,Urine 2942 /HPF (0-6)
[2018-03-16 14:57] LABS: Mitochondrial Antibody (M2) <0.1 U
[2018-03-16] MEDS ORDERED: CALCIUM GLUCONATE 1,000 MG in SODIUM CHLORIDE 0.9% 100 ML IV ONE (15:29)
[2018-03-16] MEDS: SODIUM BICARB INJ 150 MEQ in DEXTROSE 5% 850 ML IV SCH (16:47)
[2018-03-16] MEDS: APIXABAN 5 MG TABLET PO SCH (18:36)
[2018-03-16] MEDS: SERTRALINE 25 MG TABLET PO SCH (20:18)
[2018-03-17] MEDS: PIPERACILLIN/TAZOBACTAM 3,375 MG in SODIUM CHLORIDE 0.9% 100 ML IV SCH ×2 (00:37→14:29)
[2018-03-17] MEDS: LACTULOSE 20 GM/30 ML UDCUP PO SCH ×4 (00:38→21:25)
[2018-03-17] MEDS: ALBUTEROL/IPRATROPIUM 3 ML NEB RESP TX SCH ×4 (01:37→19:45)
[2018-03-17] MEDS: metroNIDAZOLE INJ 500 MG in PREMIX 1 EACH IV SCH ×3 (02:09→18:22)
[2018-03-17] MEDS: SODIUM BICARB INJ 150 MEQ in DEXTROSE 5% 850 ML IV SCH ×2 (03:26→13:54)
[2018-03-17 05:16] LABS: Albumin 2.3 G/DL (3.4-5.0); Bilirubin,Total 9.8 MG/DL (0.2-1.0); Osmolality,Calculated 287.8 MOS/KG (273-304); Potassium 4.6 MMOL/L (3.5-5.1); Total Protein 6.2 G/DL (6.4-8.3)
[2018-03-17] MEDS: AMIODARONE INJ 450 MG in DEXTROSE 5% 241 ML IV SCH (05:27)
[2018-03-17] MEDS: APIXABAN 5 MG TABLET PO SCH ×2 (09:43→21:27)
[2018-03-17] MEDS: PANTOPRAZOLE 40 MG TABLET PO SCH (09:43)
[2018-03-17] MEDS: ASPIRIN EC 81 MG TABLET PO SCH (09:43)
[2018-03-17] MEDS: FOLIC ACID 1 MG TABLET PO SCH ×2 (09:43→21:27)
[2018-03-17] MEDS: THIAMINE 100 MG TABLET PO SCH ×2 (09:43→21:27)
[2018-03-17] MEDS: BISOPROLOL 5 MG TABLET PO SCH (09:46)
[2018-03-17] MEDS ORDERED: AMIODARONE 200 MG TABLET PO SCH (11:00)
[2018-03-17 11:29] LABS: Basophils % 0.1 % (0.0-0.8); Hematocrit 36.2 VOL% (35.7-47.0); Hemoglobin 11.1 GM/DL (12.0-16.0); Immature Granulocytes % 1.9 %; Immature Granulocytes Absolute 0.47 #; Lymphocytes # 1.2 10*3/uL (1.4-4.0); Lymphocytes % 4.8 % (21.3-54.2); Mean Corpuscular HGB Conc 30.7 GM/DL (32-36); Mean Corpuscular Hemoglobin 23 PG (27-34); Mean Corpuscular Volume 74.2 FL (87-102); Monocytes # 2.5 10*3/uL (0.11-0.8); NRBC # 2.44 10*3/uL; Neutrophils # 20.5 10*3/uL (1.4-7.4); Neutrophils % 83.2 % (38.7-73.9); Platelet Count 128 T/CUMM (130-400); Red Blood Count 4.88 MC/CUMM (3.8-5.5); Red Cell Distribution Width 21.7 % (9.3-17.3); White Blood Count 24.6 T/CUMM (4-12)
[2018-03-17 11:49] LABS: Hypochromasia 2+; Lymphocytes 3 % (20-55); Microcytosis 1+; Nucleated Red Blood Cells 25 (0-5); Ovalocytes Slight; Polychromasia Slight; Segmented Neutrophils 89 % (50-85); Total Cells Counted 100
[2018-03-17 11:50] LABS: Acanthocytes Few; Burr Cells Few; Platelet Estimate Adequate; Target Cells Slight
[2018-03-17 14:35] LABS: INR 8.3
[2018-03-17] MEDS ORDERED: PHYTONADIONE 10 MG/1 ML AMP SUBCUT ONE (14:44)
[2018-03-17] MEDS: SOTALOL 80 MG TABLET PO SCH ×2 (15:53→21:26)
[2018-03-17] MEDS: SERTRALINE 25 MG TABLET PO SCH (21:25)
[2018-03-17] MEDS: ZALEPLON 5 MG CAPSULE PO PRN (21:53)
[2018-03-18] MEDS: SODIUM BICARB INJ 150 MEQ in DEXTROSE 5% 850 ML IV SCH ×2 (00:02→09:08)
[2018-03-18] MEDS: ALBUTEROL/IPRATROPIUM 3 ML NEB RESP TX SCH ×4 (00:09→19:40)
[2018-03-18] MEDS: metroNIDAZOLE INJ 500 MG in PREMIX 1 EACH IV SCH ×3 (05:37→17:43)
[2018-03-18] MEDS: PIPERACILLIN/TAZOBACTAM 3,375 MG in SODIUM CHLORIDE 0.9% 100 ML IV SCH ×2 (05:38→12:33)
[2018-03-18 06:20] LABS: Basophils % 0.1 % (0.0-0.8); Hematocrit 34.4 VOL% (35.7-47.0); Hemoglobin 10.7 GM/DL (12.0-16.0); Immature Granulocytes % 1.6 %; Immature Granulocytes Absolute 0.31 #; Lymphocytes # 1.6 10*3/uL (1.4-4.0); Lymphocytes % 8.3 % (21.3-54.2); Mean Corpuscular HGB Conc 31.1 GM/DL (32-36); Mean Corpuscular Hemoglobin 23 PG (27-34); Mean Corpuscular Volume 72.3 FL (87-102); Monocytes # 1.8 10*3/uL (0.11-0.8); Monocytes % 9.5 % (1.7-12.7); NRBC # 2.11 10*3/uL; Neutrophils # 15.2 10*3/uL (1.4-7.4); Neutrophils % 80.5 % (38.7-73.9); Platelet Count 141 T/CUMM (130-400); Red Blood Count 4.76 MC/CUMM (3.8-5.5); Red Cell Distribution Width 21.5 % (9.3-17.3); White Blood Count 18.8 T/CUMM (4-12)
[2018-03-18 06:35] LABS: PT Patient Result 63.2 SECS
[2018-03-18 06:36] LABS: INR 5.9
[2018-03-18 06:47] LABS: Anisocytosis 1+; Band Neutrophils 3 % (0-10); Lymphocytes 9 % (20-55); Nucleated Red Blood Cells 21 (0-5); Platelet Estimate Adequate; Poikilocytosis 1+; Segmented Neutrophils 82 % (50-85); Target Cells 1+; Total Cells Counted 100
[2018-03-18 06:48] LABS: Hypochromasia 1+; Polychromasia Slight
[2018-03-18 07:10] LABS: Alanine Aminotransferase 604 U/L (13-56); Albumin 1.9 G/DL (3.4-5.0); Alkaline Phosphatase 184 U/L (45-117); Aspartate Amino Transferase 1222 U/L (0-37); Blood Urea Nitrogen 51 MG/DL (7-18); Calcium 7.7 MG/DL (8.5-10.1); Glucose 135 MG/DL (74-106); Osmolality,Calculated 294.4 MOS/KG (273-304); Potassium 3.7 MMOL/L (3.5-5.1); Sodium 140 MMOL/L (136-145); Total Protein 5.6 G/DL (6.4-8.3)
[2018-03-18] MEDS: SOTALOL 80 MG TABLET PO SCH ×2 (09:03→20:16)
[2018-03-18] MEDS: DEXTROSE 5% NACL 0.45% 1,000 ML IV SCH ×2 (09:03→22:23)
[2018-03-18] MEDS: LANSOPRAZOLE ODT 30 MG TABLET PER TUBE SCH (09:04)
[2018-03-18] MEDS: THIAMINE 100 MG TABLET PO SCH ×2 (09:04→20:16)
[2018-03-18] MEDS: FOLIC ACID 1 MG TABLET PO SCH ×2 (09:04→20:15)
[2018-03-18] MEDS: ASPIRIN CHEW 81 MG TABLET PO SCH (09:04)
[2018-03-18] MEDS: APIXABAN 5 MG TABLET PO SCH ×2 (09:04→20:17)
[2018-03-18] MEDS: BISOPROLOL 5 MG TABLET PO SCH (09:07)
[2018-03-18] MEDS: LACTULOSE 20 GM/30 ML UDCUP PO SCH ×2 (09:07→20:16)
[2018-03-18] MEDS ORDERED: DEXTROSE 50% 25 GM/50 ML VIAL IV PRN (10:38)
[2018-03-18] MEDS ORDERED: GLUCAGON 1 MG VIAL IM PRN (10:38)
[2018-03-18] MEDS ORDERED: PHYTONADIONE 10 MG/1 ML AMP SUBCUT ONE (11:30)
[2018-03-18] MEDS: INSULIN REGULAR 100 UNIT/ML SUBCUT SCH ×3 (12:18→23:39)
[2018-03-18] MEDS: VANCOMYCIN 50 MG/ML 60 ML/BOTTLE PER TUBE SCH ×3 (15:31→23:40)
[2018-03-18] MEDS: MEROPENEM 1,000 MG in SODIUM CHLORIDE 0.9% 100 ML IV SCH (15:31)
[2018-03-18] MEDS: SERTRALINE 25 MG TABLET PO SCH (20:18)
[2018-03-19] MEDS: ALBUTEROL/IPRATROPIUM 3 ML NEB RESP TX SCH ×4 (01:27→19:07)
[2018-03-19] MEDS: MEROPENEM 1,000 MG in SODIUM CHLORIDE 0.9% 100 ML IV SCH ×2 (02:12→15:09)
[2018-03-19] MEDS: metroNIDAZOLE INJ 500 MG in PREMIX 1 EACH IV SCH ×3 (02:12→18:59)
[2018-03-19 03:53] LABS: Basophils % 0.2 % (0.0-0.8); Eosinophils # 0.1 10*3/uL (0.0-0.87); Eosinophils % 0.7 % (0.00-10.9); Hematocrit 36.1 VOL% (35.7-47.0); Hemoglobin 11.2 GM/DL (12.0-16.0); Immature Granulocytes % 1.6 %; Immature Granulocytes Absolute 0.28 #; Lymphocytes # 1.6 10*3/uL (1.4-4.0); Lymphocytes % 9.3 % (21.3-54.2); Mean Corpuscular Hemoglobin 22 PG (27-34); Mean Corpuscular Volume 72.2 FL (87-102); Monocytes # 1.4 10*3/uL (0.11-0.8); Monocytes % 8.2 % (1.7-12.7); NRBC # 1.66 10*3/uL; Neutrophils # 13.9 10*3/uL (1.4-7.4); Platelet Count 110 T/CUMM (130-400); Red Cell Distribution Width 21.7 % (9.3-17.3); White Blood Count 17.4 T/CUMM (4-12)
[2018-03-19 03:59] LABS: INR 4.1
[2018-03-19 04:03] LABS: PT Patient Result 44.2 SECS
[2018-03-19 04:13] LABS: Albumin 1.8 G/DL (3.4-5.0); Bilirubin,Total 9.6 MG/DL (0.2-1.0); Calcium 7.3 MG/DL (8.5-10.1); Osmolality,Calculated 294.3 MOS/KG (273-304); Potassium 3.1 MMOL/L (3.5-5.1); Total Protein 5.5 G/DL (6.4-8.3)
[2018-03-19 04:45] LABS: Prealbumin 3.6 MG/DL (20-40)
[2018-03-19 05:17] LABS: Hypochromasia 1+
[2018-03-19 05:18] LABS: Macrocytosis Slight; Platelet Estimate Decreased; Polychromasia Slight
[2018-03-19] MEDS: MAGNESIUM SULF RIDER 2 GM in PREMIX 1 EACH IV PRN (05:46)
[2018-03-19] MEDS: POTASSIUM CHLORIDE 20 MEQ/15 ML UDCUP PO PRN ×2 (05:46→09:05)
[2018-03-19] MEDS: VANCOMYCIN 50 MG/ML 60 ML/BOTTLE PER TUBE SCH ×3 (05:50→17:32)
[2018-03-19] MEDS: INSULIN REGULAR 100 UNIT/ML SUBCUT SCH ×3 (06:12→17:32)
[2018-03-19] MEDS: FOLIC ACID 1 MG TABLET PO SCH ×2 (09:05→21:14)
[2018-03-19] MEDS: LANSOPRAZOLE ODT 30 MG TABLET PER TUBE SCH (09:05)
[2018-03-19] MEDS: SOTALOL 80 MG TABLET PO SCH ×2 (09:05→21:14)
[2018-03-19] MEDS: THIAMINE 100 MG TABLET PO SCH ×2 (09:09→21:14)
[2018-03-19] MEDS: APIXABAN 5 MG TABLET PO SCH ×2 (09:09→21:14)
[2018-03-19] MEDS: ASPIRIN CHEW 81 MG TABLET PO SCH (09:10)
[2018-03-19] MEDS: BISOPROLOL 5 MG TABLET PO SCH (09:25)
[2018-03-19] MEDS: ONDANSETRON 4 MG/2 ML VIAL IV PRN (10:16)
[2018-03-19] MEDS ORDERED: PHYTONADIONE 10 MG/1 ML AMP SUBCUT ONE (11:18)
[2018-03-19] MEDS: DEXTROSE 5% NACL 0.45% 1,000 ML IV SCH (12:12)
[2018-03-19] MEDS: SERTRALINE 25 MG TABLET PO SCH (21:14)
[2018-03-20] MEDS: INSULIN REGULAR 100 UNIT/ML SUBCUT SCH ×4 (00:01→17:58)
[2018-03-20] MEDS: VANCOMYCIN 50 MG/ML 60 ML/BOTTLE PER TUBE SCH ×4 (00:01→17:59)
[2018-03-20] MEDS: ALBUTEROL/IPRATROPIUM 3 ML NEB RESP TX SCH ×4 (00:51→19:39)
[2018-03-20] MEDS: MEROPENEM 1,000 MG in SODIUM CHLORIDE 0.9% 100 ML IV SCH (02:08)
[2018-03-20] MEDS: metroNIDAZOLE INJ 500 MG in PREMIX 1 EACH IV SCH ×3 (02:08→17:57)
[2018-03-20 04:54] LABS: Basophils % 0.3 % (0.0-0.8); Eosinophils # 0.1 10*3/uL (0.0-0.87); Eosinophils % 0.8 % (0.00-10.9); Hematocrit 37.5 VOL% (35.7-47.0); Hemoglobin 11.7 GM/DL (12.0-16.0); Immature Granulocytes % 2.6 %; Immature Granulocytes Absolute 0.39 #; Lymphocytes # 2.2 10*3/uL (1.4-4.0); Mean Corpuscular HGB Conc 31.2 GM/DL (32-36); Mean Corpuscular Hemoglobin 23 PG (27-34); Mean Corpuscular Volume 72.3 FL (87-102); Monocytes # 1.7 10*3/uL (0.11-0.8); Monocytes % 11.3 % (1.7-12.7); NRBC # 2.54 10*3/uL; Neutrophils # 10.3 10*3/uL (1.4-7.4); Red Blood Count 5.19 MC/CUMM (3.8-5.5); Red Cell Distribution Width 23.1 % (9.3-17.3); White Blood Count 14.8 T/CUMM (4-12)
[2018-03-20 04:55] LABS: Platelet Count 109 T/CUMM (130-400)
[2018-03-20 05:06] LABS: INR 3.7
[2018-03-20 05:09] LABS: PT Patient Result 39.9 SECS
[2018-03-20 05:12] LABS: Eosinophils 1 % (0-10); Hypochromasia 1+; Lymphocytes 17 % (20-55); Nucleated Red Blood Cells 26 (0-5); Segmented Neutrophils 77 % (50-85); Total Cells Counted 100
[2018-03-20 05:13] LABS: Acanthocytes Few; Polychromasia Slight; Target Cells Few
[2018-03-20 05:14] LABS: Anisocytosis 1+; Burr Cells Slight; Microcytosis 1+
[2018-03-20 05:15] LABS: Platelet Estimate Decreased
[2018-03-20 05:18] LABS: Albumin 1.5 G/DL (3.4-5.0); Bilirubin,Total 11.4 MG/DL (0.2-1.0); Calcium 7.4 MG/DL (8.5-10.1); Osmolality,Calculated 293.4 MOS/KG (273-304); Potassium 3.5 MMOL/L (3.5-5.1); Total Protein 5.8 G/DL (6.4-8.3)
[2018-03-20] MEDS: POTASSIUM CHLORIDE 20 MEQ/15 ML UDCUP PO PRN ×2 (05:51→08:39)
[2018-03-20] MEDS: DEXTROSE 5% NACL 0.45% 1,000 ML IV SCH (07:41)
[2018-03-20] MEDS: LANSOPRAZOLE ODT 30 MG TABLET PER TUBE SCH (08:39)
[2018-03-20] MEDS: THIAMINE 100 MG TABLET PO SCH ×2 (08:40→21:18)
[2018-03-20] MEDS: APIXABAN 5 MG TABLET PO SCH ×2 (08:40→21:18)
[2018-03-20] MEDS: SOTALOL 80 MG TABLET PO SCH ×2 (08:40→21:17)
[2018-03-20] MEDS: BISOPROLOL 5 MG TABLET PO SCH (08:40)
[2018-03-20] MEDS: FOLIC ACID 1 MG TABLET PO SCH ×2 (08:40→21:17)
[2018-03-20] MEDS: ASPIRIN CHEW 81 MG TABLET PO SCH (08:40)
[2018-03-20] MEDS: SERTRALINE 25 MG TABLET PO SCH (21:18)
[2018-03-21] MEDS: INSULIN REGULAR 100 UNIT/ML SUBCUT SCH ×4 (00:10→18:26)
[2018-03-21] MEDS: VANCOMYCIN 50 MG/ML 60 ML/BOTTLE PER TUBE SCH ×4 (00:20→18:14)
[2018-03-21] MEDS: ALBUTEROL/IPRATROPIUM 3 ML NEB RESP TX SCH ×4 (01:11→18:53)
[2018-03-21] MEDS: metroNIDAZOLE INJ 500 MG in PREMIX 1 EACH IV SCH ×3 (03:02→18:14)
[2018-03-21 03:29] LABS: ABG Base Excess 6.2 MMOL/L (-2.5-2.5); ABG Oxygen Saturation 97.2 % (95-100); ABG PCO2 40.1 MM HG (35-48); ABG PH 7.484 (7.35-7.45); ABG PO2 95.4 MM HG (80-95); ABG TCO2 26.4 MMOL/L (23-27); Allen Test Positive
[2018-03-21 04:04] LABS: Basophils % 0.2 % (0.0-0.8); Eosinophils % 0.2 % (0.00-10.9); Hematocrit 38.5 VOL% (35.7-47.0); Hemoglobin 11.7 GM/DL (12.0-16.0); Immature Granulocytes % 1.6 %; Immature Granulocytes Absolute 0.27 #; Lymphocytes # 2.4 10*3/uL (1.4-4.0); Mean Corpuscular HGB Conc 30.4 GM/DL (32-36); Mean Corpuscular Hemoglobin 22 PG (27-34); Mean Corpuscular Volume 73.6 FL (87-102); Monocytes # 2.2 10*3/uL (0.11-0.8); Monocytes % 12.8 % (1.7-12.7); NRBC # 3.66 10*3/uL; Neutrophils # 12.3 10*3/uL (1.4-7.4); Neutrophils % 71.2 % (38.7-73.9); Platelet Count 150 T/CUMM (130-400); Red Blood Count 5.23 MC/CUMM (3.8-5.5); Red Cell Distribution Width 23.6 % (9.3-17.3); White Blood Count 17.2 T/CUMM (4-12)
[2018-03-21] MEDS: DEXTROSE 5% NACL 0.45% 1,000 ML IV SCH (04:10)
[2018-03-21 04:29] LABS: Albumin 1.7 G/DL (3.4-5.0); Calcium 7.5 MG/DL (8.5-10.1); Osmolality,Calculated 295.4 MOS/KG (273-304); Potassium 3.8 MMOL/L (3.5-5.1); Total Protein 5.9 G/DL (6.4-8.3)
[2018-03-21 04:48] LABS: Hypochromasia 2+; Lymphocytes 11 % (20-55); Nucleated Red Blood Cells 14 (0-5); Platelet Estimate Adequate; Segmented Neutrophils 78 % (50-85); Total Cells Counted 100
[2018-03-21 04:49] LABS: Anisocytosis 1+; Macrocytosis 1+; Ovalocytes 1+; Target Cells 1+
[2018-03-21] MEDS: POTASSIUM CHLORIDE 20 MEQ/15 ML UDCUP PO PRN (06:11)
[2018-03-21] MEDS: LANSOPRAZOLE ODT 30 MG TABLET PER TUBE SCH (08:47)
[2018-03-21] MEDS: APIXABAN 5 MG TABLET PO SCH ×2 (08:47→21:17)
[2018-03-21] MEDS: FOLIC ACID 1 MG TABLET PO SCH ×2 (08:47→21:17)
[2018-03-21] MEDS: SOTALOL 80 MG TABLET PO SCH (08:48)
[2018-03-21] MEDS: ASPIRIN CHEW 81 MG TABLET PO SCH (08:48)
[2018-03-21] MEDS: THIAMINE 100 MG TABLET PO SCH ×2 (08:48→21:16)
[2018-03-21] MEDS: BISOPROLOL 5 MG TABLET PO SCH (08:48)
[2018-03-21] MEDS ORDERED: SOTALOL 80 MG TABLET PO ONE (10:20)
[2018-03-21] MEDS ORDERED: SOTALOL 80 MG TABLET PO SCH (21:00)
[2018-03-21] MEDS: SERTRALINE 25 MG TABLET PO SCH (21:16)
[2018-03-22] MEDS: INSULIN REGULAR 100 UNIT/ML SUBCUT SCH ×4 (00:09→17:39)
[2018-03-22] MEDS: VANCOMYCIN 50 MG/ML 60 ML/BOTTLE PER TUBE SCH ×4 (00:10→17:39)
[2018-03-22] MEDS: ALBUTEROL/IPRATROPIUM 3 ML NEB RESP TX SCH ×4 (01:49→19:30)
[2018-03-22] MEDS: diphenhydrAMINE CAP 25 MG CAPSULE PO PRN (02:18)
[2018-03-22] MEDS: metroNIDAZOLE INJ 500 MG in PREMIX 1 EACH IV SCH ×3 (02:21→17:39)
[2018-03-22 03:27] LABS: Allen Test Positive
[2018-03-22 03:28] LABS: ABG HCO3 28.9 MMOL/L (20-26); ABG Oxygen Saturation 97.7 % (95-100); ABG PCO2 40.9 MM HG (35-48); ABG PH 7.461 (7.35-7.45); ABG TCO2 25.6 MMOL/L (23-27)
[2018-03-22 04:24] LABS: Basophils # 0.1 10*3/uL (0.0-0.2); Basophils % 0.3 % (0.0-0.8); Eosinophils % 0.2 % (0.00-10.9); Hematocrit 37.6 VOL% (35.7-47.0); Hemoglobin 11.6 GM/DL (12.0-16.0); Immature Granulocytes % 1.7 %; Immature Granulocytes Absolute 0.34 #; Lymphocytes # 2.1 10*3/uL (1.4-4.0); Lymphocytes % 10.5 % (21.3-54.2); Mean Corpuscular HGB Conc 30.9 GM/DL (32-36); Mean Corpuscular Hemoglobin 23 PG (27-34); Mean Corpuscular Volume 73.3 FL (87-102); Monocytes # 2.1 10*3/uL (0.11-0.8); Monocytes % 10.5 % (1.7-12.7); Neutrophils # 15.4 10*3/uL (1.4-7.4); Neutrophils % 76.8 % (38.7-73.9); Platelet Count 151 T/CUMM (130-400); Red Blood Count 5.13 MC/CUMM (3.8-5.5); Red Cell Distribution Width 23.9 % (9.3-17.3); White Blood Count 20.1 T/CUMM (4-12)
[2018-03-22 04:48] LABS: Albumin 1.6 G/DL (3.4-5.0); Calcium 7.9 MG/DL (8.5-10.1); Osmolality,Calculated 297.4 MOS/KG (273-304); Total Protein 5.9 G/DL (6.4-8.3)
[2018-03-22 04:53] LABS: Bilirubin,Total 12.8 MG/DL (0.2-1.0)
[2018-03-22 05:19] LABS: Lymphocytes 9 % (20-55); Nucleated Red Blood Cells 10 (0-5); Segmented Neutrophils 91 % (50-85); Total Cells Counted 100
[2018-03-22 05:20] LABS: Platelet Estimate Normal; Polychromasia Few; Target Cells Few
[2018-03-22] MEDS: FOLIC ACID 1 MG TABLET PO SCH ×2 (08:31→22:00)
[2018-03-22] MEDS: ASPIRIN CHEW 81 MG TABLET PO SCH (08:31)
[2018-03-22] MEDS: LANSOPRAZOLE ODT 30 MG TABLET PER TUBE SCH (08:31)
[2018-03-22] MEDS: APIXABAN 5 MG TABLET PO SCH ×2 (08:31→22:01)
[2018-03-22] MEDS: SOTALOL 80 MG TABLET PO SCH (08:31)
[2018-03-22] MEDS: THIAMINE 100 MG TABLET PO SCH ×2 (08:31→22:00)
[2018-03-22] MEDS: BISOPROLOL 5 MG TABLET PO SCH (08:31)
[2018-03-22] MEDS ORDERED: SOTALOL 80 MG TABLET PO SCH (09:00)
[2018-03-22 09:38] LABS: INR 3.1
[2018-03-22 09:52] LABS: PT Patient Result 33.3 SECS
[2018-03-22 09:53] LABS: Partial Thromboplastin Time 42.1 SECS (0-40)
[2018-03-22] MEDS: SERTRALINE 25 MG TABLET PO SCH (22:00)
[2018-03-23] MEDS: INSULIN REGULAR 100 UNIT/ML SUBCUT SCH ×4 (00:10→18:30)
[2018-03-23] MEDS: VANCOMYCIN 50 MG/ML 60 ML/BOTTLE PER TUBE SCH ×4 (00:11→19:35)
[2018-03-23] MEDS: ALBUTEROL/IPRATROPIUM 3 ML NEB RESP TX SCH ×4 (01:41→19:42)
[2018-03-23] MEDS: metroNIDAZOLE INJ 500 MG in PREMIX 1 EACH IV SCH ×3 (03:00→18:30)
[2018-03-23 03:45] LABS: ABG Base Excess 6.2 MMOL/L (-2.5-2.5); ABG HCO3 29.9 MMOL/L (20-26); ABG PCO2 33.8 MM HG (35-48); ABG PH 7.537 (7.35-7.45); ABG PO2 66.2 MM HG (80-95); ABG TCO2 25.1 MMOL/L (23-27); Allen Test Positive; Pt O2 Delivery Device Room Air
[2018-03-23 05:14] LABS: Basophils # 0.1 10*3/uL (0.0-0.2); Basophils % 0.3 % (0.0-0.8); Eosinophils % 0.1 % (0.00-10.9); Hematocrit 36.2 VOL% (35.7-47.0); Hemoglobin 11.6 GM/DL (12.0-16.0); Immature Granulocytes % 1.7 %; Immature Granulocytes Absolute 0.44 #; Lymphocytes # 2.8 10*3/uL (1.4-4.0); Lymphocytes % 11.1 % (21.3-54.2); Mean Corpuscular Hemoglobin 23 PG (27-34); Mean Corpuscular Volume 71.4 FL (87-102); Monocytes # 2.3 10*3/uL (0.11-0.8); Monocytes % 9.1 % (1.7-12.7); NRBC # 6.74 10*3/uL; Neutrophils # 19.6 10*3/uL (1.4-7.4); Neutrophils % 77.7 % (38.7-73.9); Platelet Count 105 T/CUMM (130-400); Red Blood Count 5.07 MC/CUMM (3.8-5.5); Red Cell Distribution Width 24.1 % (9.3-17.3); White Blood Count 25.3 T/CUMM (4-12)
[2018-03-23 05:24] LABS: Albumin 1.4 G/DL (3.4-5.0); Osmolality,Calculated 296.5 MOS/KG (273-304); Potassium 4.3 MMOL/L (3.5-5.1); Total Protein 5.7 G/DL (6.4-8.3)
[2018-03-23 05:26] LABS: Prealbumin 4.3 MG/DL (20-40)
[2018-03-23 05:38] LABS: Hypochromasia 1+; Platelet Estimate Decreased
[2018-03-23 05:39] LABS: Bilirubin,Total 12.8 MG/DL (0.2-1.0)
[2018-03-23] MEDS ORDERED: FUROSEMIDE 40 MG/4 ML VIAL IV ONE (07:43)
[2018-03-23] MEDS: FOLIC ACID 1 MG TABLET PO SCH ×2 (08:06→20:09)
[2018-03-23] MEDS: BISOPROLOL 5 MG TABLET PO SCH (08:06)
[2018-03-23] MEDS: SOTALOL 80 MG TABLET PO SCH ×2 (08:06→20:09)
[2018-03-23] MEDS: THIAMINE 100 MG TABLET PO SCH ×2 (08:06→20:08)
[2018-03-23] MEDS: LANSOPRAZOLE ODT 30 MG TABLET PER TUBE SCH (08:06)
[2018-03-23] MEDS: APIXABAN 5 MG TABLET PO SCH ×2 (08:06→20:09)
[2018-03-23] MEDS: ASPIRIN CHEW 81 MG TABLET PO SCH (08:07)
[2018-03-23] MEDS: SERTRALINE 25 MG TABLET PO SCH (20:08)
[2018-03-24] MEDS: ALBUTEROL/IPRATROPIUM 3 ML NEB RESP TX SCH ×4 (00:18→20:29)
[2018-03-24] MEDS: VANCOMYCIN 50 MG/ML 60 ML/BOTTLE PER TUBE SCH ×5 (00:57→23:10)
[2018-03-24] MEDS: INSULIN REGULAR 100 UNIT/ML SUBCUT SCH ×5 (00:57→23:09)
[2018-03-24] MEDS: metroNIDAZOLE INJ 500 MG in PREMIX 1 EACH IV SCH ×3 (01:33→18:21)
[2018-03-24 04:33] LABS: Basophils # 0.1 10*3/uL (0.0-0.2); Basophils % 0.3 % (0.0-0.8); Eosinophils # 0.1 10*3/uL (0.0-0.87); Eosinophils % 0.2 % (0.00-10.9); Hematocrit 34.6 VOL% (35.7-47.0); Hemoglobin 11.1 GM/DL (12.0-16.0); Immature Granulocytes % 1.6 %; Immature Granulocytes Absolute 0.42 #; Lymphocytes # 2.9 10*3/uL (1.4-4.0); Lymphocytes % 10.8 % (21.3-54.2); Mean Corpuscular HGB Conc 32.1 GM/DL (32-36); Mean Corpuscular Hemoglobin 23 PG (27-34); Mean Corpuscular Volume 70.8 FL (87-102); Monocytes # 2.2 10*3/uL (0.11-0.8); Monocytes % 8.4 % (1.7-12.7); NRBC # 4.76 10*3/uL; Neutrophils # 20.9 10*3/uL (1.4-7.4); Neutrophils % 78.7 % (38.7-73.9); Platelet Count 104 T/CUMM (130-400); Red Blood Count 4.89 MC/CUMM (3.8-5.5); Red Cell Distribution Width 24.1 % (9.3-17.3); White Blood Count 26.5 T/CUMM (4-12)
[2018-03-24 04:54] LABS: Band Neutrophils 2 % (0-10); Hypochromasia 1+; Lymphocytes 10 % (20-55); Nucleated Red Blood Cells 26 (0-5); Platelet Estimate Decreased; Segmented Neutrophils 79 % (50-85); Total Cells Counted 100
[2018-03-24 04:55] LABS: Albumin 1.3 G/DL (3.4-5.0); Anisocytosis 1+; Microcytosis 1+; Osmolality,Calculated 299.3 MOS/KG (273-304); Ovalocytes 1+; Potassium 3.8 MMOL/L (3.5-5.1); Target Cells 1+; Total Protein 5.4 G/DL (6.4-8.3)
[2018-03-24 05:05] LABS: Bilirubin,Direct 9.49 MG/DL (0.0-0.20); Bilirubin,Indirect 2.5 MG/DL (0.0-1.0)
[2018-03-24] MEDS: POTASSIUM CHLORIDE 20 MEQ/15 ML UDCUP PO PRN (06:01)
[2018-03-24] MEDS ORDERED: DIGOXIN 0.5 MG/2 ML AMP IV ONE (08:33)
[2018-03-24] MEDS: BISOPROLOL 5 MG TABLET PO SCH (08:34)
[2018-03-24] MEDS: SOTALOL 80 MG TABLET PO SCH ×4 (08:34→22:56)
[2018-03-24] MEDS: APIXABAN 5 MG TABLET PO SCH ×2 (08:50→20:30)
[2018-03-24] MEDS: LANSOPRAZOLE ODT 30 MG TABLET PER TUBE SCH (08:50)
[2018-03-24] MEDS: ASPIRIN CHEW 81 MG TABLET PO SCH (08:50)
[2018-03-24] MEDS: FOLIC ACID 1 MG TABLET PO SCH ×2 (08:50→20:29)
[2018-03-24] MEDS: THIAMINE 100 MG TABLET PO SCH ×2 (08:50→20:30)
[2018-03-24] MEDS: SERTRALINE 25 MG TABLET PO SCH (20:29)
[2018-03-25] MEDS: SOTALOL 80 MG TABLET PO SCH ×6 (02:01→22:06)
[2018-03-25] MEDS: ALBUTEROL/IPRATROPIUM 3 ML NEB RESP TX SCH ×4 (02:06→19:00)
[2018-03-25] MEDS: metroNIDAZOLE INJ 500 MG in PREMIX 1 EACH IV SCH (02:10)
[2018-03-25] MEDS: INSULIN REGULAR 100 UNIT/ML SUBCUT SCH ×4 (06:09→23:44)
[2018-03-25 06:13] LABS: Basophils % 0.3 % (0.0-0.8); Lymphocytes # 2.6 10*3/uL (1.4-4.0); Neutrophils % 77.8 % (38.7-73.9); Platelet Count 113 T/CUMM (130-400)
[2018-03-25] MEDS: VANCOMYCIN 50 MG/ML 60 ML/BOTTLE PER TUBE SCH ×4 (06:17→23:43)
[2018-03-25 06:29] LABS: Basophils # 0.1 10*3/uL (0.0-0.2); Eosinophils % 0.2 % (0.00-10.9); Hematocrit 35.1 VOL% (35.7-47.0); Hemoglobin 11.4 GM/DL (12.0-16.0); Immature Granulocytes Absolute 0.48 #; Lymphocytes % 10.9 % (21.3-54.2); Mean Corpuscular HGB Conc 32.5 GM/DL (32-36); Mean Corpuscular Hemoglobin 23 PG (27-34); Mean Corpuscular Volume 70.9 FL (87-102); Monocytes # 2.1 10*3/uL (0.11-0.8); Monocytes % 8.8 % (1.7-12.7); NRBC # 7.48 10*3/uL; Neutrophils # 18.4 10*3/uL (1.4-7.4); Red Blood Count 4.95 MC/CUMM (3.8-5.5); Red Cell Distribution Width 24.9 % (9.3-17.3); White Blood Count 23.7 T/CUMM (4-12)
[2018-03-25 06:36] LABS: Lymphocytes 8 % (20-55); Nucleated Red Blood Cells 61 (0-5); Platelet Estimate Normal; Polychromasia Few; Segmented Neutrophils 89 % (50-85); Target Cells Few; Total Cells Counted 100
[2018-03-25 07:01] LABS: Albumin 1.3 G/DL (3.4-5.0); Calcium 8.1 MG/DL (8.5-10.1); Osmolality,Calculated 296.8 MOS/KG (273-304); Potassium 4.7 MMOL/L (3.5-5.1); Total Protein 5.2 G/DL (6.4-8.3)
[2018-03-25 07:02] LABS: Bilirubin,Total 13.8 MG/DL (0.2-1.0)
[2018-03-25] MEDS ORDERED: ALBUMIN 25% 25 GM in PREMIX 1 EACH IV ONE (08:39)
[2018-03-25] MEDS: LANSOPRAZOLE ODT 30 MG TABLET PER TUBE SCH (09:00)
[2018-03-25] MEDS: FOLIC ACID 1 MG TABLET PO SCH ×2 (09:00→22:06)
[2018-03-25] MEDS: THIAMINE 100 MG TABLET PO SCH ×2 (09:01→22:06)
[2018-03-25] MEDS: ASPIRIN CHEW 81 MG TABLET PO SCH (09:01)
[2018-03-25] MEDS: BISOPROLOL 5 MG TABLET PO SCH (10:16)
[2018-03-25] MEDS: diphenhydrAMINE CAP 25 MG CAPSULE PO PRN (23:43)
[2018-03-26] MEDS: ALBUTEROL/IPRATROPIUM 3 ML NEB RESP TX SCH ×3 (00:44→19:27)
[2018-03-26] MEDS: SOTALOL 80 MG TABLET PO SCH ×6 (02:59→21:20)
[2018-03-26 05:29] LABS: Basophils % 0.2 % (0.0-0.8); Eosinophils % 0.1 % (0.00-10.9); Hematocrit 32.2 VOL% (35.7-47.0); Hemoglobin 10.6 GM/DL (12.0-16.0); Immature Granulocytes % 1.4 %; Immature Granulocytes Absolute 0.26 #; Lymphocytes # 2.7 10*3/uL (1.4-4.0); Lymphocytes % 13.9 % (21.3-54.2); Mean Corpuscular HGB Conc 32.9 GM/DL (32-36); Mean Corpuscular Hemoglobin 24 PG (27-34); Mean Corpuscular Volume 71.6 FL (87-102); Monocytes # 1.7 10*3/uL (0.11-0.8); Monocytes % 8.7 % (1.7-12.7); NRBC # 5.95 10*3/uL; Neutrophils # 14.5 10*3/uL (1.4-7.4); Neutrophils % 75.7 % (38.7-73.9); Platelet Count 123 T/CUMM (130-400); Red Cell Distribution Width 24.7 % (9.3-17.3); White Blood Count 19.2 T/CUMM (4-12)
[2018-03-26 05:49] LABS: Hypochromasia 1+; Macrocytosis Slight; Ovalocytes Slight; Platelet Estimate Adequate; Polychromasia Slight; Target Cells Few
[2018-03-26 05:50] LABS: Albumin 1.6 G/DL (3.4-5.0); Calcium 8.4 MG/DL (8.5-10.1); Osmolality,Calculated 298.7 MOS/KG (273-304); Total Protein 5.4 G/DL (6.4-8.3)
[2018-03-26 06:04] LABS: Prealbumin 5.1 MG/DL (20-40)
[2018-03-26] MEDS: VANCOMYCIN 50 MG/ML 60 ML/BOTTLE PER TUBE SCH ×3 (06:15→20:00)
[2018-03-26] MEDS: INSULIN REGULAR 100 UNIT/ML SUBCUT SCH ×3 (06:36→18:35)
[2018-03-26] MEDS: LANSOPRAZOLE ODT 30 MG TABLET PER TUBE SCH (08:21)
[2018-03-26] MEDS: ASPIRIN CHEW 81 MG TABLET PO SCH (08:21)
[2018-03-26] MEDS: BISOPROLOL 5 MG TABLET PO SCH (08:21)
[2018-03-26] MEDS: FOLIC ACID 1 MG TABLET PO SCH ×2 (08:21→21:30)
[2018-03-26] MEDS: THIAMINE 100 MG TABLET PO SCH ×2 (08:21→21:30)
[2018-03-26] MEDS ORDERED: ALBUMIN 25% 25 GM in PREMIX 1 EACH IV ONE (08:38)
[2018-03-26] MEDS ORDERED: FUROSEMIDE 40 MG/4 ML VIAL IV ONE (08:39)
[2018-03-27] MEDS: VANCOMYCIN 50 MG/ML 60 ML/BOTTLE PER TUBE SCH ×5 (00:33→23:29)
[2018-03-27] MEDS: INSULIN REGULAR 100 UNIT/ML SUBCUT SCH ×4 (00:36→17:30)
[2018-03-27] MEDS: ALBUTEROL/IPRATROPIUM 3 ML NEB RESP TX SCH ×5 (01:56→20:07)
[2018-03-27] MEDS: SOTALOL 80 MG TABLET PO SCH ×6 (02:30→22:15)
[2018-03-27 07:28] LABS: Basophils % 0.3 % (0.0-0.8); Eosinophils % 0.1 % (0.00-10.9); Hemoglobin 10.2 GM/DL (12.0-16.0); Immature Granulocytes % 1.1 %; Immature Granulocytes Absolute 0.17 #; Lymphocytes # 2.5 10*3/uL (1.4-4.0); Lymphocytes % 16.5 % (21.3-54.2); Mean Corpuscular HGB Conc 32.9 GM/DL (32-36); Mean Corpuscular Hemoglobin 24 PG (27-34); Mean Corpuscular Volume 73.3 FL (87-102); Monocytes # 1.4 10*3/uL (0.11-0.8); Monocytes % 9.6 % (1.7-12.7); NRBC # 4.57 10*3/uL; Neutrophils # 10.8 10*3/uL (1.4-7.4); Neutrophils % 72.4 % (38.7-73.9); Platelet Count 117 T/CUMM (130-400); Red Blood Count 4.23 MC/CUMM (3.8-5.5); White Blood Count 14.9 T/CUMM (4-12)
[2018-03-27 07:39] LABS: PT Patient Result 21.4 SECS
[2018-03-27 07:46] LABS: Albumin 1.9 G/DL (3.4-5.0); Calcium 8.3 MG/DL (8.5-10.1); Osmolality,Calculated 297.5 MOS/KG (273-304); Potassium 3.6 MMOL/L (3.5-5.1); Total Protein 5.4 G/DL (6.4-8.3)
[2018-03-27 07:49] LABS: Eosinophils 1 % (0-10); Hypochromasia 1+; Lymphocytes 5 % (20-55); Macrocytosis Slight; Nucleated Red Blood Cells 39 (0-5); Platelet Estimate Decreased; Polychromasia Slight; Segmented Neutrophils 85 % (50-85); Target Cells Few; Total Cells Counted 100
[2018-03-27 08:05] LABS: Bilirubin,Total 15.2 MG/DL (0.2-1.0)
[2018-03-27] MEDS: THIAMINE 100 MG TABLET PO SCH ×2 (08:54→22:15)
[2018-03-27] MEDS: ASPIRIN CHEW 81 MG TABLET PO SCH (08:54)
[2018-03-27] MEDS: PANTOPRAZOLE 40 MG TABLET PO SCH (08:54)
[2018-03-27] MEDS: FOLIC ACID 1 MG TABLET PO SCH ×2 (08:54→22:15)
[2018-03-27] MEDS: BISOPROLOL 5 MG TABLET PO SCH (09:51)
[2018-03-27] MEDS: CLOTRIMAZOLE 10 MG TROCHE PO SCH ×2 (14:08→22:15)
[2018-03-28] MEDS: ALBUTEROL/IPRATROPIUM 3 ML NEB RESP TX SCH ×4 (02:30→20:04)
[2018-03-28] MEDS: SOTALOL 80 MG TABLET PO SCH ×6 (04:47→22:36)
[2018-03-28] MEDS: INSULIN REGULAR 100 UNIT/ML SUBCUT SCH ×4 (04:47→17:32)
[2018-03-28] MEDS: VANCOMYCIN 50 MG/ML 60 ML/BOTTLE PER TUBE SCH ×3 (06:07→17:33)
[2018-03-28 06:56] LABS: Basophils % 0.3 % (0.0-0.8); Eosinophils % 0.1 % (0.00-10.9); Hematocrit 33.7 VOL% (35.7-47.0); Hemoglobin 10.8 GM/DL (12.0-16.0); Immature Granulocytes % 1.3 %; Lymphocytes # 2.4 10*3/uL (1.4-4.0); Lymphocytes % 15.6 % (21.3-54.2); Mean Corpuscular Hemoglobin 24 PG (27-34); Mean Corpuscular Volume 74.4 FL (87-102); Monocytes # 1.3 10*3/uL (0.11-0.8); Monocytes % 8.3 % (1.7-12.7); NRBC # 4.77 10*3/uL; Neutrophils # 11.6 10*3/uL (1.4-7.4); Neutrophils % 74.4 % (38.7-73.9); Platelet Count 176 T/CUMM (130-400); Red Blood Count 4.53 MC/CUMM (3.8-5.5); White Blood Count 15.6 T/CUMM (4-12)
[2018-03-28 07:28] LABS: Albumin 1.7 G/DL (3.4-5.0); Calcium 8.4 MG/DL (8.5-10.1); Osmolality,Calculated 297.5 MOS/KG (273-304); Potassium 3.7 MMOL/L (3.5-5.1); Total Protein 5.6 G/DL (6.4-8.3)
[2018-03-28 07:33] LABS: Bilirubin,Total 15.1 MG/DL (0.2-1.0)
[2018-03-28 09:57] LABS: Eosinophils 1 % (0-10); Lymphocytes 4 % (20-55); Nucleated Red Blood Cells 34 (0-5); Polychromasia Few; Segmented Neutrophils 92 % (50-85); Total Cells Counted 100
[2018-03-28 09:58] LABS: Hypochromasia 2+; Microcytosis 1+; Platelet Estimate Adequate
[2018-03-28] MEDS: ASPIRIN CHEW 81 MG TABLET PO SCH (10:01)
[2018-03-28] MEDS: FOLIC ACID 1 MG TABLET PO SCH ×2 (10:02→22:37)
[2018-03-28] MEDS: CLOTRIMAZOLE 10 MG TROCHE PO SCH ×3 (10:03→22:37)
[2018-03-28] MEDS: THIAMINE 100 MG TABLET PO SCH ×2 (10:04→22:36)
[2018-03-28] MEDS: PANTOPRAZOLE 40 MG TABLET PO SCH (10:04)
[2018-03-28] MEDS: BISOPROLOL 5 MG TABLET PO SCH (10:05)
[2018-03-29] MEDS: INSULIN REGULAR 100 UNIT/ML SUBCUT SCH ×4 (00:23→19:05)
[2018-03-29] MEDS: ALBUTEROL/IPRATROPIUM 3 ML NEB RESP TX SCH ×4 (01:10→19:52)
[2018-03-29] MEDS: diphenhydrAMINE CAP 25 MG CAPSULE PO PRN ×2 (01:48→21:54)
[2018-03-29] MEDS: SOTALOL 80 MG TABLET PO SCH ×6 (01:54→21:54)
[2018-03-29] MEDS: VANCOMYCIN 50 MG/ML 60 ML/BOTTLE PER TUBE SCH ×4 (05:58→17:49)
[2018-03-29] MEDS: ASPIRIN CHEW 81 MG TABLET PO SCH (08:37)
[2018-03-29] MEDS: PANTOPRAZOLE 40 MG TABLET PO SCH (08:37)
[2018-03-29] MEDS: BISOPROLOL 5 MG TABLET PO SCH (08:37)
[2018-03-29] MEDS: THIAMINE 100 MG TABLET PO SCH ×2 (08:37→21:54)
[2018-03-29] MEDS: CLOTRIMAZOLE 10 MG TROCHE PO SCH ×4 (08:37→21:54)
[2018-03-29 08:38] LABS: Basophils % 0.3 % (0.0-0.8); Eosinophils % 0.1 % (0.00-10.9); Hematocrit 33.7 VOL% (35.7-47.0); Hemoglobin 10.7 GM/DL (12.0-16.0); Immature Granulocytes % 1.2 %; Immature Granulocytes Absolute 0.16 #; Lymphocytes # 1.6 10*3/uL (1.4-4.0); Lymphocytes % 11.4 % (21.3-54.2); Mean Corpuscular HGB Conc 31.8 GM/DL (32-36); Mean Corpuscular Hemoglobin 24 PG (27-34); Mean Corpuscular Volume 75.6 FL (87-102); Monocytes # 1.2 10*3/uL (0.11-0.8); Monocytes % 8.6 % (1.7-12.7); NRBC # 5.37 10*3/uL; Neutrophils # 10.7 10*3/uL (1.4-7.4); Neutrophils % 78.4 % (38.7-73.9); Platelet Count 165 T/CUMM (130-400); Red Blood Count 4.46 MC/CUMM (3.8-5.5); Red Cell Distribution Width 31.5 % (9.3-17.3); White Blood Count 13.6 T/CUMM (4-12)
[2018-03-29] MEDS: FOLIC ACID 1 MG TABLET PO SCH ×2 (08:50→21:57)
[2018-03-29 08:56] LABS: Calcium 8.3 MG/DL (8.5-10.1); Osmolality,Calculated 294.8 MOS/KG (273-304); Potassium 3.5 MMOL/L (3.5-5.1)
[2018-03-29 13:37] LABS: Lymphocytes 9 % (20-55); Nucleated Red Blood Cells 33 (0-5); Ovalocytes Few; Polychromasia Few; Segmented Neutrophils 83 % (50-85); Target Cells Few; Total Cells Counted 100
[2018-03-29 13:38] LABS: Elliptocytes Few; Platelet Estimate Adequate; Poikilocytosis 2+; Tear Drop Cells Slight
[2018-03-30] MEDS: VANCOMYCIN 50 MG/ML 60 ML/BOTTLE PER TUBE SCH ×4 (00:05→18:28)
[2018-03-30] MEDS: INSULIN REGULAR 100 UNIT/ML SUBCUT SCH ×4 (01:15→18:27)
[2018-03-30] MEDS: ALBUTEROL/IPRATROPIUM 3 ML NEB RESP TX SCH ×4 (01:58→19:27)
[2018-03-30] MEDS: SOTALOL 80 MG TABLET PO SCH ×4 (03:05→21:15)
[2018-03-30 05:56] LABS: Basophils % 0.2 % (0.0-0.8); Eosinophils % 0.1 % (0.00-10.9); Hematocrit 33.9 VOL% (35.7-47.0); Hemoglobin 10.9 GM/DL (12.0-16.0); Immature Granulocytes % 1.1 %; Immature Granulocytes Absolute 0.15 #; Lymphocytes % 14.5 % (21.3-54.2); Mean Corpuscular HGB Conc 32.2 GM/DL (32-36); Mean Corpuscular Hemoglobin 24 PG (27-34); Mean Corpuscular Volume 75.3 FL (87-102); Monocytes % 7.1 % (1.7-12.7); NRBC # 4.32 10*3/uL; Neutrophils # 10.8 10*3/uL (1.4-7.4); Platelet Count 182 T/CUMM (130-400); Red Cell Distribution Width 32.9 % (9.3-17.3)
[2018-03-30 06:16] LABS: Albumin 1.6 G/DL (3.4-5.0); Calcium 8.3 MG/DL (8.5-10.1); Osmolality,Calculated 299.5 MOS/KG (273-304); Potassium 3.6 MMOL/L (3.5-5.1); Total Protein 5.7 G/DL (6.4-8.3)
[2018-03-30 06:25] LABS: Bilirubin,Total 14.4 MG/DL (0.2-1.0)
[2018-03-30 07:09] LABS: Eosinophils 1 % (0-10); Lymphocytes 6 % (20-55); Nucleated Red Blood Cells 51 (0-5); Segmented Neutrophils 86 % (50-85); Total Cells Counted 100
[2018-03-30 07:11] LABS: Hypochromasia 2+; Ovalocytes Few
[2018-03-30 07:12] LABS: Anisocytosis 1+; Microcytosis 1+; Platelet Estimate Adequate; Polychromasia Slight; Target Cells Few
[2018-03-30] MEDS ORDERED: MORPHINE 4 MG/1 ML VIAL IV PRN (08:56)
[2018-03-30] MEDS ORDERED: TUBERCULIN SKIN TEST 0.1 ML SYRINGE INTRADERM ONE (09:00)
[2018-03-30] MEDS: PANTOPRAZOLE 40 MG TABLET PO SCH (09:41)
[2018-03-30] MEDS: ASPIRIN CHEW 81 MG TABLET PO SCH (09:41)
[2018-03-30] MEDS: FOLIC ACID 1 MG TABLET PO SCH ×2 (09:41→21:15)
[2018-03-30] MEDS: THIAMINE 100 MG TABLET PO SCH ×2 (09:41→21:15)
[2018-03-30] MEDS: CLOTRIMAZOLE 10 MG TROCHE PO SCH ×3 (09:41→21:15)
[2018-03-30] MEDS: BISOPROLOL 5 MG TABLET PO SCH (09:41)
[2018-03-31] MEDS: INSULIN REGULAR 100 UNIT/ML SUBCUT SCH ×4 (00:13→18:00)
[2018-03-31] MEDS: VANCOMYCIN 50 MG/ML 60 ML/BOTTLE PER TUBE SCH ×3 (00:18→15:57)
[2018-03-31] MEDS: ALBUTEROL/IPRATROPIUM 3 ML NEB RESP TX SCH ×3 (00:58→14:23)
[2018-03-31] MEDS: SOTALOL 80 MG TABLET PO SCH ×3 (05:58→21:03)
[2018-03-31 07:58] LABS: Basophils % 0.1 % (0.0-0.8); Hematocrit 34.5 VOL% (35.7-47.0); Immature Granulocytes % 0.7 %; Lymphocytes # 1.7 10*3/uL (1.4-4.0); Lymphocytes % 12.7 % (21.3-54.2); Mean Corpuscular HGB Conc 31.9 GM/DL (32-36); Mean Corpuscular Hemoglobin 24 PG (27-34); Mean Corpuscular Volume 76.7 FL (87-102); Monocytes # 1.2 10*3/uL (0.11-0.8); Monocytes % 8.7 % (1.7-12.7); NRBC # 2.98 10*3/uL; Neutrophils # 10.4 10*3/uL (1.4-7.4); Neutrophils % 77.8 % (38.7-73.9); Platelet Count 140 T/CUMM (130-400); Red Cell Distribution Width 34.5 % (9.3-17.3); White Blood Count 13.4 T/CUMM (4-12)
[2018-03-31] MEDS ORDERED: ALBUMIN 25% 25 GM in PREMIX 1 EACH IV ONE (08:00)
[2018-03-31 08:24] LABS: Albumin 1.6 G/DL (3.4-5.0); Bilirubin,Direct 12.72 MG/DL (0.0-0.20); Calcium 8.5 MG/DL (8.5-10.1); Potassium 3.8 MMOL/L (3.5-5.1); Total Protein 5.9 G/DL (6.4-8.3)
[2018-03-31 08:29] LABS: Hypochromasia 1+; Lymphocytes 11 % (20-55); Microcytosis 1+; Nucleated Red Blood Cells 25 (0-5); Platelet Estimate Adequate; Segmented Neutrophils 87 % (50-85); Target Cells Few; Total Cells Counted 100
[2018-03-31 08:34] LABS: Bilirubin,Indirect 3.8 MG/DL (0.0-1.0); Bilirubin,Total 16.5 MG/DL (0.2-1.0)
[2018-03-31] MEDS: PANTOPRAZOLE 40 MG TABLET PO SCH (10:13)
[2018-03-31] MEDS: THIAMINE 100 MG TABLET PO SCH ×2 (10:14→21:03)
[2018-03-31] MEDS: ASPIRIN CHEW 81 MG TABLET PO SCH (10:14)
[2018-03-31] MEDS: FOLIC ACID 1 MG TABLET PO SCH ×2 (10:14→20:44)
[2018-03-31] MEDS: CLOTRIMAZOLE 10 MG TROCHE PO SCH ×3 (10:14→21:03)
[2018-03-31] MEDS ORDERED: DIGOXIN 0.5 MG/2 ML AMP IV ONE (10:39)
[2018-03-31] MEDS ORDERED: SODIUM CHLORIDE 0.9% 250 ML IV ONE (13:20)
[2018-03-31 14:11] VITALS: BP 85/49
[2018-03-31] MEDS ORDERED: FUROSEMIDE 20 MG/2 ML VIAL IV SCH (17:00)
[2018-03-31] MEDS: DEXTROSE 50% 25 GM/50 ML SYRINGE IV PRN (18:14)
[2018-03-31 19:54] LABS: ABG Base Excess -9.3 MMOL/L (-2.5-2.5); ABG Oxygen Saturation 96.9 % (95-100); ABG PH 7.435 (7.35-7.45); ABG PO2 96.7 MM HG (80-95); ABG TCO2 11.9 MMOL/L (23-27); Allen Test Positive
[2018-03-31 19:56] LABS: ABG PCO2 19.8 MM HG (35-48)
[2018-03-31] MEDS ORDERED: HEPARIN DRIP 25,000 UNITS/500 ML PREMIX IV SCH (21:00)
== END 2018-03-31 21:50 | disposition hospice, home (50) | DRG 291 ==
LOC: N.ED 15:16 → SUATTDRO 22:04 → N.EDINP 22:04 → N.TELEN 22:32 → N.CC 03-11 18:17 → N.TELEN 03-13 16:24 → N.ICU 03-15 16:15 → N.5E 03-26 12:39 → N.CC 03-31 13:47
PROVIDERS: ADMIT Internal Medicine Cardiovascular Disease; ATTEND Internal Medicine